=== PATIENT | female | born 1955 | race Two or more races ===

== ENCOUNTER 2020-02-01 16:36 | Inpatient (IN) | payer MEDICARE, MEDICAID ==
[~2020-02-01] VITALS: Ht 167.6 cm; Wt 72.6 kg
[2020-02-01 16:50] VITALS: BP 134/66
[2020-02-01] MEDS ORDERED: dexAMETHasone 10mg/ml Inj IV ONE (17:15)
--- NOTE | 2020-02-01 17:26 | Emergency Room Report ---
History of Present Illness General Chief Complaint: Upper Respiratory Illness Source: Patient Present Illness HPI Patient presents with 1 day of cough and dyspnea on exertion. She has also had fever. Diarrhea. She used her son's inhaler earlier. Use of the inhaler improved symptoms minimally. She has had some mildly productive phlegm. There is no hemoptysis. She denies chest pain, abdominal pain although her body feels weak and she has some aches. Patient has a history of diabetes, hypertension and asthma. Allergies: Coded Allergies: No Known Allergies (Unverified , 02/01/20) COVID-19 Screening Contact w/high risk pt: No Experienced COVID-19 symptoms?: No COVID-19 Testing performed LUMBER SORTER MACHINE: No Patient History Past Medical History: see triage record Social History: Denies: smoking, alcohol use, drug use Social History Narrative retired Reviewed Nursing Documentation: PMH: Agreed; PSxH: Agreed Nursing Documentation-PM Past Medical History: No History, Except For Hx Hypertension: Yes Hx Asthma: Yes Hx Diabetes: Yes Physical Exam Vital Signs Date Time Temp Pulse Resp B/P (MAP) Pulse Ox O2 Delivery O2 Flow Rate FiO2 02/01/20 16:43 99.9 90 20 134/66 (88) 94 Room Air Sp02 EP Interpretation: reviewed, abnormal - Interpreted as slightly low by me General Appearance: well appearing, no apparent distress, GCS 15 Head: normocephalic Eyes: bilateral eye normal inspection, bilateral eye PERRL, bilateral eye EOMI ENT: moist mucus membranes Neck: supple Respiratory: crackles - Minimal slight increased expiratory phase Cardiovascular #1: regular rate, rhythm, no edema Cardiovascular #2: 2+ radial (R) Gastrointestinal: normal inspection, normal bowel sounds, non tender, no mass, non-distended Genitourinary: no CVA tenderness Musculoskeletal: back normal, normal range of motion, no calf tenderness, gait/station normal Neurologic: alert, oriented x3, grossly normal Psychiatric: mood/affect normal Skin: no rash, warm/dry Medical Decision Making Diagnostic Impression: Primary Impression: Pneumonia due to COVID-19 virus Additional Impressions: Hypoxia Hyperglycemia Hyponatremia ER Course Patient presents with wheezes, mild hypoxia and fevers with diarrhea. Differential includes viral syndrome including COVID-19, asthma exacerbation, bronchitis, pneumonia amongst others. If this is Covid the patient may benefit from bamlamivimab as she is also diabetic and hypertensive. Covid testing will be obtained. In addition EKG, chest x-ray and labs. Patient treated with Decadron and may receive breathing treatments if she is Covid negative. EKG NSR, NSSSTTW changes. CXR bilateral infiltrates. Sodium 127. Glucose elevated. Elevated LDH and alk phos. D-dimer minimally elevated. COVID-19 positive. O2 sats drop with sleep. Exercised patient and O2 sat dropped to 88%. Needs admision. Blood cultures, Rocephin and azithromycin ordered. Oxygen orders also. Patient improved on oxygen. No respiratory distress. Patient admitted to the hospital. Laboratory Tests Test 02/01/20 17:20 02/01/20 22:18 White Blood Count 9.5 K/UL (4.8-10.8) Red Blood Count 3.42 M/UL (4.20-5.40) L Hemoglobin 10.1 G/DL (12.0-16.0) L Hematocrit 29.1 % (37.0-47.0) L Mean Corpuscular Volume 85 FL (80-99) Mean Corpuscular Hemoglobin 29.6 PG (27.0-31.0) Mean Corpuscular Hemoglobin Concent 34.8 G/DL (32.0-36.0) Red Cell Distribution Width 14.1 % (11.6-14.8) Platelet Count 207 K/UL (150-450) Mean Platelet Volume 9.7 FL (6.5-10.1) Neutrophils (%) (Auto) 83.6 % (45.0-75.0) H Lymphocytes (%) (Auto) 9.4 % (20.0-45.0) L Monocytes (%) (Auto) 6.7 % (1.0-10.0) Eosinophils (%) (Auto) 0.0 % (0.0-3.0) Basophils (%) (Auto) 0.2 % (0.0-2.0) Prothrombin Time 9.9 SEC (9.30-11.50) Prothrombin Time INR 0.9 (0.9-1.1) Activated Partial Thromboplast Time 32 SEC (23-33) D-Dimer 0.84 mg/L FEU (0.00-0.49) H Sodium Level 129 MMOL/L (136-145) L Potassium Level 4.5 MMOL/L (3.5-5.1) Chloride Level 97 MMOL/L (98-107) L Carbon Dioxide Level 23 MMOL/L (21-32) Anion Gap 9 mmol/L (5-15) Blood Urea Nitrogen 44 mg/dL (7-18) H Creatinine 2.0 MG/DL (0.55-1.30) H Estimated Glomerular Filtration Rate 25.0 mL/min (>60) Glucose Level 239 MG/DL (74-106) H Lactic Acid Level 1.20 mmol/L (0.4-2.0) Calcium Level 7.9 MG/DL (8.5-10.1) L Magnesium Level 2.2 MG/DL (1.8-2.4) Ferritin 228 NG/ML (8-388) Total Bilirubin 0.3 MG/DL (0.2-1.0) Aspartate Amino Transferase (AST) 29 U/L (15-37) Alanine Aminotransferase (ALT) 27 U/L (12-78) Alkaline Phosphatase 162 U/L (46-116) H Lactate Dehydrogenase 244 U/L (81-234) H Total Creatine Kinase 207 U/L (26-308) Troponin I 0.000 ng/mL (0.000-0.056) C-Reactive Protein, Quantitative 8.0 mg/dL (0.00-0.90) H Pro-B-Type Natriuretic Peptide 165 pg/mL (0-125) H Total Protein 7.5 G/DL (6.4-8.2) Albumin 2.8 G/DL (3.4-5.0) L Globulin 4.7 g/dL Albumin/Globulin Ratio 0.6 (1.0-2.7) L Lipase 409 U/L (73-393) H POC Whole Blood Glucose Pending Microbiology Date/Time Source Procedure Growth Status 02/01/20 17:20 Nasopharynx SARS-CoV-2 RdRp Gene Assay - Final Complete EKG Diagnostic Results Rate: normal Rhythm: NSR ST Segments: no acute changes - Nonspecific ST-T wave changes Rhythm Strip Diag. Results EP Interpretation: yes Rhythm: NSR, no PVC's, no ectopy Chest X-Ray Diagnostic Results Chest X-Ray Diagnostic Results : Chest X-Ray Ordered: Yes # of Views/Limited/Complete: 1 View Indication: Shortness of Breath EP Interpretation: Yes Interpretation: no effusion, no pneumothorax, other - bilateral infiltrates Impression: Other Electronically Signed by: Electronically signed by Poncho Paniagua MD Last Vital Signs Date Time Temp Pulse Resp B/P (MAP) Pulse Ox O2 Delivery O2 Flow Rate FiO2 02/01/20 16:43 99.9 90 20 134/66 (88) 94 Room Air Status: improved Disposition: ADMITTED INPATIENT Condition: Serious Poncho Paniagua MD Feb 01, 2020 17:26
--- NOTE | 2020-02-01 17:39 | Diagnostic Imaging Report ---
EXAM: XR Chest, 1 View CLINICAL HISTORY: COUGH TECHNIQUE: Frontal view of the chest. COMPARISON: No previous study. FINDINGS: Lungs: Patchy airspace disease is noted in the mid lower lung zones the periphery worrisome for Covid-90 pneumonia. Pleural space: Unremarkable. No pneumothorax. Heart: Cardiomegaly. Mediastinum: Unremarkable. Bones/joints: Osteopenia. Vasculature: Atherosclerotic disease of the aortic knob. IMPRESSION: 1. Compared of cardiomegaly. 2. Findings compatible with Covid-19 pneumonia. 3. Osteopenia.
[2020-02-01 17:55] LABS: ANION GAP 9 mmol/L (5-15); BASOPHILS % (AUTO) 0.2 % (0.0-2.0); BLOOD UREA NITROGEN 44 mg/dL (7-18); CALCIUM 7.9 MG/DL (8.5-10.1); CARBON DIOXIDE 23 MMOL/L (21-32); CHLORIDE 97 MMOL/L (98-107); HEMATOCRIT 29.1 % (37.0-47.0); HEMOGLOBIN 10.1 G/DL (12.0-16.0); LYMPHOCYTES % (AUTO) 9.4 % (20.0-45.0); MEAN CORPUSCULAR VOLUME 85 FL (80-99); MONOCYTES % (AUTO) 6.7 % (1.0-10.0); NEUTROPHILS % (AUTO) 83.6 % (45.0-75.0); PLATELET COUNT 207 K/UL (150-450); POTASSIUM 4.5 MMOL/L (3.5-5.1); RED BLOOD COUNT 3.42 M/UL (4.20-5.40); RED CELL DISTRIBUTION WIDTH 14.1 % (11.6-14.8); SODIUM 129 MMOL/L (136-145); WHITE BLOOD COUNT 9.5 K/UL (4.8-10.8)
[2020-02-01 18:01] LABS: INR 0.9 (0.9-1.1)
[2020-02-01 18:17] LABS: ALANINE AMINOTRANSFERASE 27 U/L (12-78); ALBUMIN 2.8 G/DL (3.4-5.0); ALBUMIN/GLOBULIN RATIO 0.6 (1.0-2.7); ALKALINE PHOSPHATASE 162 U/L (46-116); ASPARTATE AMINO TRANSFERASE 29 U/L (15-37); BILIRUBIN,TOTAL 0.3 MG/DL (0.2-1.0); CREATINE KINASE 207 U/L (26-308); FERRITIN 228 NG/ML (8-388); LACTATE DEHYDROGENASE 244 U/L (81-234)
[2020-02-01 18:19] VITALS: BP 136/75
[2020-02-01] MEDS ORDERED: Azithromycin 500 MG in NS 275 ML IV ONE (18:30)
[2020-02-01] MEDS ORDERED: cefTRIAXone 1 GM in NS 55 ML IVPB ONE (18:30)
[2020-02-01 20:09] VITALS: BP_SYST 118; BP_SYST 134; BP_DIAS 58; BP_DIAS 78
[2020-02-01] MEDS ORDERED: LANTUS SOL100 UNIT/1 SUBQ (20:43)
[2020-02-01 22:20] VITALS: BP 118/64
[2020-02-01] MEDS ORDERED: Acetaminophen 500mg (ES) tab ORAL PRN (22:30)
[2020-02-01] MEDS ORDERED: Varibar Thin Liquid powder 148gm MC PRN (22:45)
[2020-02-01] MEDS ORDERED: Varibar Honey 250ml MC PRN (22:45)
[2020-02-01] MEDS ORDERED: Varibar Nectar 240ml MC PRN (22:45)
[2020-02-01] MEDS ORDERED: Varibar Pudding 230ml MC PRN (22:45)
[2020-02-02] VITALS: BP 125/71
[2020-02-02 04:00] VITALS: BP 109/74
[2020-02-02 04:38] LABS: HEMATOCRIT 28.5 % (37.0-47.0); MEAN CORPUSCULAR VOLUME 83 FL (80-99); PLATELET COUNT 196 K/UL (150-450); RED BLOOD COUNT 3.43 M/UL (4.20-5.40); RED CELL DISTRIBUTION WIDTH 15.2 % (11.6-14.8); WHITE BLOOD COUNT 6.6 K/UL (4.8-10.8)
[2020-02-02 04:58] LABS: ALBUMIN 2.4 G/DL (3.4-5.0); ALBUMIN/GLOBULIN RATIO 0.5 (1.0-2.7); BILIRUBIN,TOTAL 0.3 MG/DL (0.2-1.0); CALCIUM 7.8 MG/DL (8.5-10.1); CREATININE 1.6 MG/DL (0.55-1.30); POTASSIUM 5.2 MMOL/L (3.5-5.1)
--- NOTE | 2020-02-02 06:31 | Consultation ---
DATE OF CONSULTATION: 02/02/2020 PULMONARY CONSULTATION CONSULTING PHYSICIAN: Clay Cain MD. REFERRING PHYSICIAN: Alison Coffey MD. REASON FOR CONSULTATION: Pneumonia. HISTORY OF PRESENT ILLNESS: This is a 64-year-old female who was brought to the hospital yesterday with complaints of cough and dyspnea. She also reported fever and diarrhea. She has been using inhaler at home as well with some symptoms. She reports cough with phlegm production. The patient is a known diabetic, hypertensive, and also has a history of asthma. The patient was seen and evaluated in the emergency room. She underwent a rapid gene assay testing for COVID which was positive. She also underwent imaging studies, which showed that she had bilateral patchy airspace disease particularly in the lower lung [place]. The patient was admitted to the hospital for management and care. MEDICATIONS: Her list of home medications/current medications include azithromycin, Rocephin and Decadron. PAST MEDICAL HISTORY: Diabetes mellitus, hypertension, asthma. ALLERGIES: None reported. SOCIAL HISTORY: Denies any alcohol and tobacco use. REVIEW OF SYSTEMS: Denies any headaches, hematemesis, melena, hematochezia, night sweats, or weight loss. PHYSICAL EXAMINATION: GENERAL: Reveals a 64-year-old female. VITAL SIGNS: Blood pressure is 118/60, heart rate 74, respiratory rate 18, O2 saturation 98% on 2 L of oxygen. HEENT: Unremarkable. LUNGS: Clear breath sounds bilaterally. ABDOMEN: Soft. EXTREMITIES: There is no edema. NEUROLOGIC: Nonfocal. LABORATORY DATA: Lab testing shows hemoglobin of 10, otherwise normal CBC. BMP notable for potassium 5.2, creatinine 1.6. Coags notable for D-dimer 0.8. X-ray chest discussed above. IMPRESSION: 1. COVID pneumonia. 2. Diabetes mellitus. 3. Hyperkalemia. 4. Hyponatremia. 5. Anemia. DISCUSSION: Admit to the hospital. We will initiate Decadron. We will initiate DVT prophylaxis with Lovenox. Diabetes monitoring. Blood pressure control. Defer Remdesivir use to ID. We will follow carefully. Currently saturating well on nasal oxygen. Clay Cain M.D. DR: Fermin JOB#: [id number] CC:
[2020-02-02 08:00] VITALS: BP 120/69
[2020-02-02] MEDS: Enoxaparin 40mg Inj SUBQ SCH (08:36)
[2020-02-02 12:00] VITALS: BP 125/77
--- NOTE | 2020-02-02 12:08 | Pulmonology Progress Note ---
Subjective ROS Limited/Unobtainable: No Interval Events: none major Constitutional: Denies: fever, chills, anorexia HEENT: Repors: no symptoms Respiratory: Reports: dry cough Cardiovascular: Reports: no symptoms Gastrointestinal/Abdominal: Reports: no symptoms Allergies: Coded Allergies: No Known Allergies (Unverified , 02/01/20) Objective Last 24 Hour Vital Signs Date Time Temp Pulse Resp B/P (MAP) Pulse Ox O2 Delivery O2 Flow Rate FiO2 02/02/20 09:00 Nasal Cannula 2.0 02/02/20 08:00 97.3 64 20 120/69 (86) 96 02/02/20 04:00 97.0 73 20 109/74 (86) 95 02/02/20 00:00 98.0 71 20 125/71 (89) 95 02/01/20 22:20 97.7 77 20 118/64 (82) 96 02/01/20 21:55 Nasal Cannula 2.0 02/01/20 21:00 98.6 72 16 134/58 98 Nasal Cannula 2.0 02/01/20 20:09 98.6 72 16 134/58 98 Nasal Cannula 2.0 02/01/20 18:19 98.9 78 16 136/75 98 Nasal Cannula 2.0 02/01/20 16:50 90 20 Room Air 02/01/20 16:50 99.9 90 20 134/66 94 Room Air 02/01/20 16:43 99.9 90 20 134/66 (88) 94 Room Air Intake and Output 02/01/20 02/02/20 18:59 06:59 Intake Total 1330 ml Balance 1330 ml Intake IV Total 1330 ml # Voids 1 Objective 02/02/2020 saturating well on 2 lpm NC General Appearance: WD/WN, no acute distress HEENT: normocephalic, atraumatic Respiratory: chest wall non-tender, lungs clear Cardiovascular: normal peripheral pulses, normal rate, regular rhythm, no gallop/murmur Abdomen: normal bowel sounds, soft, non tender Microbiology Date/Time Source Procedure Growth Status 02/01/20 17:20 Nasopharynx SARS-CoV-2 RdRp Gene Assay - Final Complete Laboratory Tests 02/01/20 17:20: White Blood Count 9.5, Red Blood Count 3.42L, Hemoglobin 10.1L, Hematocrit 29.1L , Mean Corpuscular Volume 85, Mean Corpuscular Hemoglobin 29.6, Mean Corpuscular Hemoglobin Concent 34.8, Red Cell Distribution Width 14.1, Platelet Count 207, Mean Platelet Volume 9.7, Neutrophils (%) (Auto) 83.6H, Lymphocytes (%) (Auto) 9.4L, Monocytes (%) (Auto) 6.7, Eosinophils (%) (Auto) 0.0, Basophils (%) (Auto) 0.2, Prothrombin Time 9.9, Prothromb Time International Ratio 0.9, Activated Partial Thromboplast Time 32, D-Dimer 0.84H, Sodium Level 129L, Potassium Level 4.5, Chloride Level 97L, Carbon Dioxide Level 23, Anion Gap 9, Blood Urea Nitrogen 44H, Creatinine 2.0H, Estimat Glomerular Filtration Rate 25.0, Glucose Level 239H, Lactic Acid Level 1.20, Calcium Level 7.9L, Magnesium Level 2.2, Ferritin 228, Total Bilirubin 0.3, Aspartate Amino Transf (AST/SGOT) 29, Alanine Aminotransferase (ALT/SGPT) 27, Alkaline Phosphatase 162H, Lactate Dehydrogenase 244H, Total Creatine Kinase 207, Troponin I 0.000, C-Reactive Protein, Quantitative 8.0H, Pro-B-Type Natriuretic Peptide 165H, Total Protein 7.5, Albumin 2.8L, Globulin 4.7, Albumin/Globulin Ratio 0.6L, Lipase 409H 02/01/20 22:18: POC Whole Blood Glucose [Pending] 02/02/20 03:45: White Blood Count 6.6, Red Blood Count 3.43L, Hemoglobin 10.0L, Hematocrit 28.5L , Mean Corpuscular Volume 83, Mean Corpuscular Hemoglobin 29.2, Mean Corpuscular Hemoglobin Concent 35.2, Red Cell Distribution Width 15.2H, Platelet Count 196, Mean Platelet Volume 9.3, Neutrophils (%) (Auto) , Lymphocytes (%) (Auto) , Monocytes (%) (Auto) , Eosinophils (%) (Auto) , Basophils (%) (Auto) , Sodium Level 131L, Potassium Level 5.2H, Chloride Level 102, Carbon Dioxide Level 21, Anion Gap 8, Blood Urea Nitrogen 44H, Creatinine 1.6H, Estimat Glomerular Filtration Rate 32.4, Glucose Level 236H, Calcium Level 7.8L, Total Bilirubin 0.3, Aspartate Amino Transf (AST/SGOT) 26, Alanine Aminotransferase (ALT/SGPT) 28, Alkaline Phosphatase 142H, Total Protein 7.0, Albumin 2.4L, Globulin 4.6, Albumin/Globulin Ratio 0.5L, Differential Total Cells Counted 100, Neutrophils % (Manual) 89H, Lymphocytes % (Manual) 7L, Monocytes % (Manual) 4, Eosinophils % (Manual) 0, Basophils % (Manual) 0, Band Neutrophils 0, Platelet Estimate Adequate, Platelet Morphology Normal, Anisocytosis 1+ Current Medications Medications (Trade) Dose Ordered Sig/Natalia Route PRN Reason Start Time Stop Time Status Last Admin Dose Admin Acetaminophen (Tylenol) 500 mg Q6HR PRN ORAL Temp >100.5 02/01/20 22:30 03/02/20 22:29 Barium Sulfate (Varibar Honey) 250 ml NOW PRN RAD 02/01/20 22:45 02/04/20 22:33 Barium Sulfate (Varibar [place]) 240 ml NOW PRN RAD 02/01/20 22:45 02/04/20 22:33 Barium Sulfate (Varibar Pudding) 230 ml NOW PRN RAD 02/01/20 22:45 02/04/20 22:33 Barium Sulfate (Varibar Thin Liquid powder) 148 gm NOW PRN RAD 02/01/20 22:45 02/04/20 22:33 Dexamethasone Sodium Phosphate (Decadron 4mg/ml vial) 6 mg DAILY IVP 02/02/20 09:00 05/02/20 08:59 02/02/20 08:35 Enoxaparin Sodium (Lovenox) 40 mg DAILY SUBQ 02/02/20 09:00 05/02/20 08:59 02/02/20 08:36 Sodium Chloride 1,000 ml @ 55 mls/hr [id number] IV 02/01/20 22:00 03/02/20 21:59 02/01/20 22:13 Assessment/Plan Assessment/Plan 1. COVID pneumonia. - Currently saturating well on nasal oxygen. - Decadron added - Defer Remdesivir use to ID. 2. Diabetes mellitus. - monitor BGs 3. Hyperkalemia. 4. Hyponatremia. 5. Anemia. DVT ppx - lovenox We will follow carefully. The care of this patient was discussed with my supervising physician Time spent for this encounter was approximately 31 minutes The patient was seen and examined at bedside and all new and available data was reviewed in the patients chart. I agree with the above findings, impression, and plan. (Patient was seen earlier today. Signature timestamp does not reflect patient encounter time) Wilder Lindsey MD Feb 02, 2020 12:08 Clay Cain MD Feb 02, 2020 18:16
[2020-02-02 16:00] VITALS: BP 126/63
--- NOTE | 2020-02-02 17:45 | Consultation ---
DATE OF CONSULTATION: 02/02/2020 INFECTIOUS DISEASE CONSULT PRIMARY ATTENDING PHYSICIAN: Alison Coffey M.D. REASON FOR CONSULTATION: COVID-19 disease. HISTORY OF PRESENT ILLNESS: This is a 64-year-old female admitted yesterday from home complaining of coughing, shortness of breath, fever, diarrhea for 1 day. She was diagnosed with COVID. PAST MEDICAL HISTORY: Significant for diabetes mellitus, hypertension, asthma. ALLERGIES: No known drug allergies MEDICATIONS: Enoxaparin, dexamethasone, Tylenol. Got a dose of ceftriaxone and azithromycin in the ER. SOCIAL HISTORY: . Denies alcohol, drug abuse, or smoking. REVIEW OF SYSTEMS: As history of present illness. Has a dry cough. No significant shortness of breath. PHYSICAL EXAMINATION: VITAL SIGNS: Temperature 97.6, maximum temperature was 99.9, pulse 70, blood pressure 125/77. GENERAL APPEARANCE: Seems well developed. HEAD AND NECK: [place] conjunctivae. HEART: Normal rate. LUNGS: Clear. BACK: Had some kyphosis. The patient currently is on room air oxygen. ABDOMEN: Soft, nontender. EXTREMITIES: No edema. NEUROLOGIC: Awake, alert, oriented x3. LABORATORY AND DIAGNOSTIC DATA: WBC 6.6, hemoglobin 10, hematocrit 28.5, platelets 196. Sodium 131, potassium 5.2, chloride 102, bicarb 20, BUN 44, creatinine 1.6, glucose is 236. Chest x-ray, cardiomegaly, osteopenia, findings compatible with COVID-19 pneumonia. COVID-19 disease was also positive. IMPRESSION: 1. COVID-19 pneumonia. The patient currently is on room air oxygen. O2 saturation is 93%. 2. Diabetes mellitus with hyperglycemia. 3. Hypertension. 4. Asthma. 5. Hyponatremia. 6. Lymphopenia. 7. Hyperkalemia. RECOMMENDATION: Continue supportive care. May use dexamethasone for asthma. We will follow up the clinical course. At the end of my exam, I thank Dr. Coffey for involving me in the care of this patient. Neri Meek M.D. DR: MLELY JOB#: [id number] CC:
[2020-02-02 20:00] VITALS: BP 119/50
--- NOTE | 2020-02-02 22:45 | History and Physical Report ---
DATE OF ADMISSION: 02/01/2020 HISTORY OF PRESENT ILLNESS: The patient is admitted for COVID-positive pneumonia. The patient basically came in with about 1 day of cough and shortness of breath. Also had fever and chills. Denies nausea, vomiting, or diarrhea. Denies abdominal pain. Denies orthopnea. The patient was admitted for electrolyte imbalance, COVID-positive pneumonia, acute renal failure, and pancreatitis. The patient does have mild abdominal pain. PAST MEDICAL HISTORY: Significant for GERD, hypertension, asthma, and diabetes. ALLERGIES: No known allergies. FAMILY HISTORY: Noncontributory. SOCIAL HISTORY: Denies history of smoking. Denies history alcohol or illicit drugs. MEDICATIONS: Lantus. REVIEW OF SYSTEMS: HEENT: Denies headaches. RESPIRATORY: Does complain of some shortness of breath. Denies cough. CARDIOVASCULAR: Denies chest pain. GASTROINTESTINAL: Denies nausea, vomiting, or diarrhea. EXTREMITIES: Denies pain. PHYSICAL EXAMINATION: VITAL SIGNS: Temperature is 97.3, pulse is 64, blood pressure 120/69. HEENT: PERRLA. NECK: Supple. CHEST: Clear to auscultation. CARDIOVASCULAR: Regular rate and rhythm. No murmurs or extra sounds. GASTROINTESTINAL: Soft, nontender, nondistended. No organomegaly. EXTREMITIES: No edema. Able to move her extremities. Reflexes in both sides. DIAGNOSTIC AND LABORATORY DATA: WBC of 9.4, hemoglobin 10.1, platelets 207,000. Sodium 131, potassium 4.2, BUN of 44, creatinine 1.6, glucose of 236. ASSESSMENT AND PLAN: COVID-positive pneumonia, acute renal failure, pancreatitis, electrolyte imbalance, hyponatremia, and elevated lipase. I have asked Dr. Hickey, Dr. Neri Meek, Dr. Clay Cain to see the patient for the above-mentioned abnormal symptoms, abnormal findings, and abnormal labs as well as for management of COVID pneumonia. Alison Coffey M.D. DR: CHERRY JOB#: [id number] CC:
[2020-02-03] VITALS: BP 115/61
[2020-02-03 04:00] VITALS: BP 138/61
[2020-02-03 08:00] VITALS: BP 146/70
[2020-02-03] MEDS: Enoxaparin 40mg Inj SUBQ SCH (08:54)
[2020-02-03 12:00] VITALS: BP 120/60
--- NOTE | 2020-02-03 12:39 | Pulmonology Progress Note ---
Subjective ROS Limited/Unobtainable: No Interval Events: none major Constitutional: Denies: fever, chills, anorexia HEENT: Repors: no symptoms Respiratory: Reports: dry cough Cardiovascular: Reports: no symptoms Gastrointestinal/Abdominal: Reports: no symptoms Allergies: Coded Allergies: No Known Allergies (Unverified , 02/01/20) Objective Last 24 Hour Vital Signs Date Time Temp Pulse Resp B/P (MAP) Pulse Ox O2 Delivery O2 Flow Rate FiO2 02/03/20 12:00 98.2 81 18 120/60 (80) 92 02/03/20 09:00 Nasal Cannula 2.0 02/03/20 08:00 97.7 76 18 146/70 (95) 93 02/03/20 04:00 97.9 79 17 138/61 (86) 92 02/03/20 00:00 97.5 72 16 115/61 (79) 95 02/02/20 21:00 Nasal Cannula 2.0 02/02/20 20:00 97.7 77 17 119/50 (73) 94 02/02/20 16:00 96.9 74 20 126/63 (84) 98 Intake and Output 02/02/20 02/03/20 19:00 07:00 Intake Total 480 ml Balance 480 ml Intake Oral 480 ml # Voids 3 3 Objective 02/03/2020 pt eating in bed; now on room air; saturating well 02/02/2020 saturating well on 2 lpm NC General Appearance: WD/WN, no acute distress HEENT: normocephalic, atraumatic Respiratory: chest wall non-tender, lungs clear Cardiovascular: normal peripheral pulses, normal rate, regular rhythm, no gallop/murmur Abdomen: normal bowel sounds, soft, non tender Microbiology Date/Time Source Procedure Growth Status 02/01/20 17:20 Nasopharynx SARS-CoV-2 RdRp Gene Assay - Final Complete Current Medications Medications (Trade) Dose Ordered Sig/Natalia Route PRN Reason Start Time Stop Time Status Last Admin Dose Admin Acetaminophen (Tylenol) 500 mg Q6HR PRN ORAL Temp >100.5 02/01/20 22:30 03/02/20 22:29 Barium Sulfate (Varibar Honey) 250 ml NOW PRN MC RAD 02/01/20 22:45 02/04/20 22:33 Barium Sulfate (Varibar [place]) 240 ml NOW PRN MC RAD 02/01/20 22:45 02/04/20 22:33 Barium Sulfate (Varibar Pudding) 230 ml NOW PRN RAD 02/01/20 22:45 02/04/20 22:33 Barium Sulfate (Varibar Thin Liquid powder) 148 gm NOW PRN RAD 02/01/20 22:45 02/04/20 22:33 Dexamethasone Sodium Phosphate (Decadron 4mg/ml vial) 6 mg DAILY IVP 02/02/20 09:00 02/10/20 09:01 02/03/20 08:53 Enoxaparin Sodium (Lovenox) 40 mg DAILY SUBQ 02/02/20 09:00 05/02/20 08:59 02/03/20 08:54 Sodium Chloride 1,000 ml @ 55 mls/hr [id number] IV 02/01/20 22:00 03/02/20 21:59 02/03/20 08:54 Assessment/Plan Assessment/Plan 1. COVID pneumonia. - Currently saturating well on RA - on Decadron - Defer Remdesivir use to ID. 2. Diabetes mellitus. - monitor BGs 3. Hyperkalemia. 4. Hyponatremia. 5. Anemia. DVT ppx - lovenox We will follow carefully. The care of this patient was discussed with my supervising physician Time spent for this encounter was approximately 31 minutes The patient was seen and examined at bedside and all new and available data was reviewed in the patients chart. I agree with the above findings, impression, and plan. (Patient was seen earlier today. Signature timestamp does not reflect patient encounter time) Wilder Lindsey MD Feb 03, 2020 12:39 Clay Cain MD Feb 03, 2020 17:00
[2020-02-03 16:00] VITALS: BP 163/77
[2020-02-03] MEDS ORDERED: METFORMIN HCL500 M1 ORAL (17:13)
[2020-02-03] MEDS ORDERED: LIPITOR80 MG ORAL (17:13)
[2020-02-03] MEDS ORDERED: METOPROLOL TART25 MG ORAL (17:13)
--- NOTE | 2020-02-03 17:36 | Consultation ---
Consult Note Consult Note I mask to evaluate the patient at the request of Dr. Alvarado for renal failure A second of patient's hospitalization Patient presents with 1 day of cough and dyspnea on exertion. She has also had fever. Diarrhea. She used her son's inhaler earlier. Use of the inhaler improved symptoms minimally. She has had some mildly productive phlegm. There is no hemoptysis. She denies chest pain, abdominal pain although her body feels weak and she has some aches. Patient has a history of diabetes, hypertension and asthma. Allergies: No Known Allergies (Unverified , 02/01/20) COVID-19 Screening Contact w/high risk pt: No Experienced COVID-19 symptoms?: No COVID-19 Testing performed RESTORATIVE AIDE: No Past Medical History: see triage record Social History: Denies: smoking, alcohol use, drug use Social History Narrative retired Reviewed Nursing Documentation: PMH: Agreed; PSxH: Agreed Past Medical History: No History, Except For Hx Hypertension: Yes Hx Asthma: Yes Hx Diabetes: Yes Vital Signs Date Time Temp Pulse Resp B/P (MAP) Pulse Ox O2 Delivery O2 Flow Rate FiO2 02/01/20 16:43 99.9 90 20 134/66 (88) 94 Room Air PHYSICAL EXAMINATION: VITAL SIGNS: Temperature 97.6, maximum temperature was 99.9, pulse 70, blood pressure 125/77. GENERAL APPEARANCE: Seems well developed. HEAD AND NECK: [place] conjunctivae. HEART: Normal rate. LUNGS: Clear. BACK: Had some kyphosis. The patient currently is on room air oxygen. ABDOMEN: Soft, nontender. EXTREMITIES: No edema. NEUROLOGIC: Awake, alert, oriented x3. LABORATORY AND DIAGNOSTIC DATA: WBC 6.6, hemoglobin 10, hematocrit 28.5, platelets 196. Sodium 131, potassium 5.2, chloride 102, bicarb 20, BUN 44, creatinine 1.6, glucose is 236. Chest x-ray, cardiomegaly, osteopenia, findings compatible with COVID-19 pneumonia. COVID-19 disease was also positive. . Assessment/Plan Impression: Acute on chronic renal failure Anemia Pneumonia due to COVID-19 virus Hypoxia Hyperglycemia History of hypertension Electrolyte imbalance Elevated lipase Plan: Change IV to normal saline Blood sugar and blood pressure control Resume Lopressor As needed hydralazine for high blood pressure Monitor renal parameters Avoid nephrotoxic's Anemia work-up Change diet to diabetic Fouladian,Tariq MD Feb 03, 2020 17:36
[2020-02-03] MEDS: HydrALAZINE 25mg tab ORAL PRN (17:53)
[2020-02-03] MEDS: Docusate 100mg cap ORAL SCH (17:54)
[2020-02-03 18:37] LABS: APPEARANCE,URINE CLEAR; BILIRUBIN, URINE NEGATIVE (NEGATIVE); COLOR,URINE PALE YELLOW; GLUCOSE, URINE (UA) 4+ (NEGATIVE); KETONES,URINE NEGATIVE (NEGATIVE); LEUKOCYTE ESTERASE ,URINE NEGATIVE (NEGATIVE); NITRITE,URINE NEGATIVE (NEGATIVE); PH,URINE 5 (4.5-8.0); PROTEIN,URINE 3+ (NEGATIVE); UROBILINOGEN,URINE NORMAL MG/DL (0.0-1.0)
[2020-02-03 20:00] VITALS: BP 128/69
[2020-02-03] MEDS: NovoLOG Insulin Flexpen SUBQ SCH (22:12)
--- NOTE | 2020-02-03 22:27 | General Progress Note ---
Subjective ROS Limited/Unobtainable: Yes Allergies: Coded Allergies: No Known Allergies (Unverified , 02/01/20) Objective Last 24 Hour Vital Signs Date Time Temp Pulse Resp B/P (MAP) Pulse Ox O2 Delivery O2 Flow Rate FiO2 02/03/20 22:13 89 162/91 02/03/20 17:53 163/77 02/03/20 16:00 97.7 82 18 163/77 (105) 94 02/03/20 12:00 98.2 81 18 120/60 (80) 92 02/03/20 09:00 Nasal Cannula 2.0 02/03/20 08:00 97.7 76 18 146/70 (95) 93 02/03/20 04:00 97.9 79 17 138/61 (86) 92 02/03/20 00:00 97.5 72 16 115/61 (79) 95 Intake and Output 02/02/20 02/03/20 18:59 06:59 Intake Total 480 ml Balance 480 ml Intake Oral 480 ml # Voids 3 3 Laboratory Tests 02/03/20 18:20: Urine Color Pale yellow, Urine Appearance Clear, Urine pH 5, Urine Specific [place] 1.005, Urine Protein 3+H, Urine Glucose (UA) 4+H, Urine Ketones Negative, Urine Blood 2+H, Urine Nitrite Negative, Urine Bilirubin Negative, Urine Urobilinogen Normal, Urine Leukocyte Esterase Negative, Urine RBC 2-4H, Urine WBC 0-2, Urine Squamous Epithelial Cells Few, Urine Bacteria Few, Urine Random Sodium 69 Height (Feet): 5 Height (Inches): 6.00 Weight (Pounds): 160 Assessment/Plan Problem List: (1) Hyperglycemia ICD Codes: R73.9 - Hyperglycemia, unspecified SNOMED: 84316795 (2) Hyponatremia ICD Codes: E87.1 - Hypo-osmolality and hyponatremia SNOMED: 62530731 (3) Hypoxia ICD Codes: R09.02 - Hypoxemia; J12.89 - Other viral pneumonia SNOMED: 484245813 (4) Pneumonia due to COVID-19 virus ICD Codes: U07.1 - COVID-19; J12.89 - Other viral pneumonia SNOMED: 844249899140061481 Status: progressing Assessment/Plan: prn supportive care covid positie pna resp insuff afebrile reviewed chart and labs Alison Coffey MD Feb 03, 2020 22:27
[2020-02-03] MEDS ORDERED: Levemir Flexpen SUBQ SCH (23:30)
[2020-02-04] VITALS: BP 143/68
[2020-02-04 04:00] VITALS: BP 159/79
[2020-02-04] MEDS: NovoLOG Insulin Flexpen SUBQ SCH ×7 (06:02→20:12)
[2020-02-04 07:09] LABS: BASOPHILS % (AUTO) 0.4 % (0.0-2.0); HEMATOCRIT 29.7 % (37.0-47.0); MEAN CORPUSCULAR VOLUME 86 FL (80-99); MONOCYTES % (AUTO) 8.9 % (1.0-10.0); NEUTROPHILS % (AUTO) 79.7 % (45.0-75.0); PLATELET COUNT 288 K/UL (150-450); RED BLOOD COUNT 3.44 M/UL (4.20-5.40); RED CELL DISTRIBUTION WIDTH 13.8 % (11.6-14.8); WHITE BLOOD COUNT 8.6 K/UL (4.8-10.8)
[2020-02-04 08:10] VITALS: BP 157/72
[2020-02-04] MEDS: Docusate 100mg cap ORAL SCH ×3 (08:11→17:07)
[2020-02-04] MEDS: Enoxaparin 40mg Inj SUBQ SCH (08:26)
[2020-02-04] MEDS: Levemir Flexpen SUBQ SCH ×2 (08:27→17:07)
[2020-02-04] MEDS: HydrALAZINE 25mg tab ORAL PRN (08:31)
[2020-02-04 08:40] LABS: ALANINE AMINOTRANSFERASE 31 U/L (12-78); ALBUMIN 2.6 G/DL (3.4-5.0); ALBUMIN/GLOBULIN RATIO 0.6 (1.0-2.7); ALKALINE PHOSPHATASE 142 U/L (46-116); ANION GAP 9 mmol/L (5-15); ASPARTATE AMINO TRANSFERASE 23 U/L (15-37); BILIRUBIN,TOTAL 0.3 MG/DL (0.2-1.0); BLOOD UREA NITROGEN 31 mg/dL (7-18); CARBON DIOXIDE 24 MMOL/L (21-32); CHLORIDE 104 MMOL/L (98-107); CHOLESTEROL 142 MG/DL (< 200); CREATINE KINASE 142 U/L (26-308); CREATININE 1.3 MG/DL (0.55-1.30); FERRITIN 295 NG/ML (8-388); GAMMA GLUTAMYL TRANSPEPTIDASE 18 U/L (5-85); HDL CHOLESTEROL 36 MG/DL (40-60); LACTATE DEHYDROGENASE 234 U/L (81-234); PHOSPHORUS 2.7 MG/DL (2.5-4.9); POTASSIUM 5.1 MMOL/L (3.5-5.1); SODIUM 137 MMOL/L (136-145); TRIGLYCERIDES 219 MG/DL (30-150)
[2020-02-04 08:41] LABS: % IRON SATURATION 20 % (15-50); IRON 49 ug/dL (50-175); TOTAL IRON BINDING CAPACITY 251 ug/dL (250-450)
--- NOTE | 2020-02-04 09:08 | Pulmonology Progress Note ---
Subjective ROS Limited/Unobtainable: Yes Interval Events: none major Constitutional: Denies: fever, chills, anorexia HEENT: Repors: no symptoms Respiratory: Reports: dry cough Cardiovascular: Reports: no symptoms Gastrointestinal/Abdominal: Reports: no symptoms Allergies: Coded Allergies: No Known Allergies (Unverified , 02/01/20) Objective Last 24 Hour Vital Signs Date Time Temp Pulse Resp B/P (MAP) Pulse Ox O2 Delivery O2 Flow Rate FiO2 02/04/20 08:31 161/89 02/04/20 08:11 68 157/72 02/04/20 08:10 97.9 68 18 157/72 (100) 95 02/04/20 04:00 97.7 72 18 159/79 (105) 94 02/04/20 00:00 97.9 82 18 143/68 (93) 94 02/03/20 22:13 89 162/91 02/03/20 21:00 Nasal Cannula 1.0 02/03/20 20:00 98.5 82 18 128/69 (88) 93 02/03/20 17:53 163/77 02/03/20 16:00 97.7 82 18 163/77 (105) 94 02/03/20 12:00 98.2 81 18 120/60 (80) 92 Intake and Output 02/03/20 02/04/20 19:02 07:02 Intake Total 1115 ml 480 ml Balance 1115 ml 480 ml Intake Oral 600 ml 480 ml IV Total 515 ml # Voids 3 2 Objective 02/04/2020 pt eating in bed; saturating well on RA 02/03/2020 pt eating in bed; now on room air; saturating well 02/02/2020 saturating well on 2 lpm NC General Appearance: WD/WN, no acute distress HEENT: normocephalic, atraumatic Respiratory: chest wall non-tender, lungs clear Cardiovascular: normal peripheral pulses, normal rate, regular rhythm, no gallop/murmur Abdomen: normal bowel sounds, soft, non tender Microbiology Date/Time Source Procedure Growth Status 02/01/20 17:20 Nasopharynx SARS-CoV-2 RdRp Gene Assay - Final Complete 02/01/20 17:20 Blood Blood Culture - Preliminary NO GROWTH AFTER 48 HOURS Resulted 02/01/20 17:05 Blood Blood Culture - Preliminary NO GROWTH AFTER 48 HOURS Resulted Laboratory Tests 02/03/20 18:20: Urine Color Pale yellow, Urine Appearance Clear, Urine pH 5, Urine Specific [place] 1.005, Urine Protein 3+H, Urine Glucose (UA) 4+H, Urine Ketones Negative, Urine Blood 2+H, Urine Nitrite Negative, Urine Bilirubin Negative, Urine Urobilinogen Normal, Urine Leukocyte Esterase Negative, Urine RBC 2-4H, Urine WBC 0-2, Urine Squamous Epithelial Cells Few, Urine Bacteria Few, Urine Random Sodium 69 02/04/20 05:30: White Blood Count 8.6, Red Blood Count 3.44L, Hemoglobin 10.0L, Hematocrit 29.7L , Mean Corpuscular Volume 86, Mean Corpuscular Hemoglobin 29.0, Mean Corpuscular Hemoglobin Concent 33.6, Red Cell Distribution Width 13.8, Platelet Count 288, Mean Platelet Volume 8.3, Neutrophils (%) (Auto) 79.7H, Lymphocytes (%) (Auto) 11.0L, Monocytes (%) (Auto) 8.9, Eosinophils (%) (Auto) 0.0, Basophils (%) (Auto) 0.4, Sodium Level 137, Potassium Level 5.1, Chloride Level 104, Carbon Dioxide Level 24, Anion Gap 9, Blood Urea Nitrogen 31H, Creatinine 1.3, Estimat Glomerular Filtration Rate 41.1, Glucose Level 320H, Hemoglobin A1c 10.1H, Uric Acid 6.6, Calcium Level 8.0L, Phosphorus Level 2.7, Magnesium Level 2.3, Iron Level 49L, Total Iron Binding Capacity 251, Percent Iron Saturation 20, Unsaturated Iron Binding 202, Ferritin 295, Total Bilirubin 0.3, Gamma Glutamyl Transpeptidase 18, Aspartate Amino Transf (AST/SGOT) 23, Alanine Aminotransferase (ALT/SGPT) 31, Alkaline Phosphatase 142H, Lactate Dehydrogenase 234, Total Creatine Kinase 142, C-Reactive Protein, Quantitative 1.1H, Pro-B-Type Natriuretic Peptide [Pending], Total Protein 7.1, Albumin 2.6L, Globulin 4.5, Albumin/Globulin Ratio 0.6L, Triglycerides Level 219H, Cholesterol Level 142, LDL Cholesterol 64, HDL Cholesterol 36L, Cholesterol/HDL Ratio 3.9, Lipase 450H, Vitamin B12 Level 1205H, Folate 12.4, Thyroid Stimulating Hormone (TSH) 1.024 Current Medications Medications (Trade) Dose Ordered Sig/Natalia Route PRN Reason Start Time Stop Time Status Last Admin Dose Admin Acetaminophen (Tylenol) 500 mg Q6HR PRN ORAL Temp >100.5 02/01/20 22:30 03/02/20 22:29 Barium Sulfate (Varibar Honey) 250 ml NOW PRN RAD 02/01/20 22:45 02/04/20 22:33 Barium Sulfate (Varibar [place]) 240 ml NOW PRN RAD 02/01/20 22:45 02/04/20 22:33 Barium Sulfate (Varibar Pudding) 230 ml NOW PRN RAD 02/01/20 22:45 02/04/20 22:33 Barium Sulfate (Varibar Thin Liquid powder) 148 gm NOW PRN RAD 02/01/20 22:45 02/04/20 22:33 Dexamethasone Sodium Phosphate (Decadron 4mg/ml vial) 6 mg DAILY IVP 02/02/20 09:00 02/10/20 09:01 02/04/20 08:12 Dextrose (Dextrose 50%) 25 ml Q30M PRN IV Hypoglycemia 02/04/20 07:00 05/04/20 06:59 Dextrose (Dextrose 50%) 50 ml Q30M PRN IV Hypoglycemia 02/04/20 07:00 05/04/20 06:59 Docusate Sodium (Colace) 100 mg THREE TIMES A DAY ORAL 02/03/20 18:00 03/04/20 17:59 02/04/20 08:11 Enoxaparin Sodium (Lovenox) 40 mg DAILY SUBQ 02/02/20 09:00 05/02/20 08:59 02/04/20 08:26 Hydralazine HCl (Apresoline) 25 mg Q4H PRN ORAL BP over 160 systolic 02/03/20 17:45 05/03/20 17:44 02/04/20 08:31 Insulin Aspart (NovoLOG) BEFORE MEALS AND HS SUBQ 02/03/20 21:00 05/03/20 20:59 02/04/20 06:02 Insulin Aspart (NovoLOG) 10 units NOVOTIAC SUBQ 02/04/20 07:00 05/04/20 06:59 02/04/20 07:09 Insulin Detemir (Levemir) 15 units BID SUBQ 02/04/20 09:00 05/04/20 08:59 12/14/20 08:27 Metoprolol Tartrate (Lopressor) 25 mg Q12HR ORAL 02/03/20 21:00 05/03/20 20:59 02/04/20 08:11 Pantoprazole (Protonix) 40 mg EVERY 12 HOURS ORAL 02/03/20 21:00 03/04/20 20:59 02/04/20 08:11 Sodium Chloride 1,000 ml @ 75 mls/hr [id number] IV 02/03/20 17:45 03/04/20 17:44 02/04/20 08:16 Assessment/Plan Assessment/Plan 1. COVID-19 pneumonia. - Currently saturating well on RA - on Decadron; switched to oral today - Defer Remdesivir use to ID. 2. Diabetes mellitus. - monitor BGs - A1c 10.1 - on glucose lowering agents 3. Hyperkalemia.; Resolved 4. Hyponatremia.; Resolved 5. Anemia. Hgb 10.0 6. Hypertension DVT ppx - on lovenox We will follow carefully. The care of this patient was discussed with my supervising physician Time spent for this encounter was approximately 31 minutes The patient was seen and examined at bedside and all new and available data was reviewed in the patients chart. I agree with the above findings, impression, and plan. (Patient was seen earlier today. Signature timestamp does not reflect patient encounter time) Wilder Lindsey MD Feb 04, 2020 09:08 Clay Cain MD Feb 04, 2020 17:07
--- NOTE | 2020-02-04 09:15 | Consultation ---
DATE OF CONSULTATION: 02/04/2020 ENDOCRINOLOGY CONSULTATION CONSULTING PHYSICIAN: Hemanth Pierce MD REFERRING PHYSICIAN: Alison Coffey MD REASON FOR CONSULTATION: Diabetes management. HISTORY OF PRESENT ILLNESS: The patient is a 64-year-old female with history of diabetes, on metformin and Lantus as an outpatient, who presented to the hospital with cough and dyspnea. She presented to ED and she was ruled in for COVID pneumonia, started on dexamethasone, which raised the glucose and Endocrinology was consulted. Her glucose is running over 400. There is no evidence of DKA. PAST MEDICAL HISTORY: 1. Diabetes. 2. Asthma. 3. Hypertension. ALLERGIES TO MEDICATIONS: None. FAMILY HISTORY: Noncontributory. SOCIAL HISTORY: No smoking, alcohol, or drug use. REVIEW OF SYSTEMS: As per HPI. PHYSICAL EXAMINATION: VITAL SIGNS: Blood pressure is 159/79, heart rate 73, temperature 97.7. The rest of the exam is deferred due to COVID isolation. LABORATORY VALUES: Sodium 131, potassium 5.2, chloride 102, bicarb 21, BUN 44, creatinine 1.6, glucose of 236. Urine, 3+ protein, 4+ glucose, 2+ blood. CBC shows WBC of 6.6, hemoglobin 10, hematocrit 28, and platelet of 196,000. DIAGNOSES: 1. COVID pneumonia. 2. Diabetes, exacerbated by steroids. PLAN: 1. Start Levemir 15 units b.i.d. 2. Start NovoLog 10 units before each meal. 3. Start NovoLog sliding scale before meals and at bedtime. 4. Hypoglycemia protocol is in order. 5. Further adjustment according to blood glucose values. We will follow her carefully during hospital stay. 6. Hemoglobin A1c is pending. Thank you, Dr. Coffey, for the courtesy of this consultation. Hemanth Pierce M.D. DR: DAYANARA/YASH JOB#: [id number] CC: ANUJA
--- NOTE | 2020-02-04 11:23 | Infectious Diseases Prog Note ---
Assessment/Plan Assessment/Plan IMPRESSION: 1. COVID-19 pneumonia. 2. Diabetes mellitus with hyperglycemia. 3. Hypertension. 4. Asthma. 5. Hyponatremia. 6. Lymphopenia. 7. Hyperkalemia. RECOMMENDATION: Continue supportive care. Continue dexamethasone Subjective ROS Limited/Unobtainable: No Constitutional: Reports: no symptoms Respiratory: Reports: no symptoms Cardiovascular: Reports: no symptoms Gastrointestinal/Abdominal: Reports: no symptoms Genitourinary: Reports: no symptoms Allergies: Coded Allergies: No Known Allergies (Unverified , 02/01/20) Objective Last 24 Hour Vital Signs Date Time Temp Pulse Resp B/P (MAP) Pulse Ox O2 Delivery O2 Flow Rate FiO2 02/04/20 08:31 161/89 02/04/20 08:25 Nasal Cannula 1.0 02/04/20 08:11 68 157/72 02/04/20 08:10 97.9 68 18 157/72 (100) 95 02/04/20 04:00 97.7 72 18 159/79 (105) 94 02/04/20 00:00 97.9 82 18 143/68 (93) 94 02/03/20 22:13 89 162/91 02/03/20 21:00 Nasal Cannula 1.0 02/03/20 20:00 98.5 82 18 128/69 (88) 93 02/03/20 17:53 163/77 02/03/20 16:00 97.7 82 18 163/77 (105) 94 02/03/20 12:00 98.2 81 18 120/60 (80) 92 Height (Feet): 5 Height (Inches): 6.00 Weight (Pounds): 160 General Appearance: no acute distress HEENT: mucous membranes moist Respiratory/Chest: lungs clear, other - oxygen by nasal cannula Abdomen: soft, non tender Extremities: no edema Neurologic/Psychiatric: alert, oriented x 3, responsive Microbiology Date/Time Source Procedure Growth Status 02/01/20 17:20 Nasopharynx SARS-CoV-2 RdRp Gene Assay - Final Complete 02/01/20 17:20 Blood Blood Culture - Preliminary NO GROWTH AFTER 48 HOURS Resulted 02/01/20 17:05 Blood Blood Culture - Preliminary NO GROWTH AFTER 48 HOURS Resulted Laboratory Tests Test 02/03/20 18:20 02/04/20 05:30 Urine Color Pale yellow Urine Appearance Clear Urine pH 5 (4.5-8.0) Urine Specific [place] 1.005 (1.005-1.035) Urine Protein 3+ (NEGATIVE) H Urine Glucose (UA) 4+ (NEGATIVE) H Urine Ketones Negative (NEGATIVE) Urine Blood 2+ (NEGATIVE) H Urine Nitrite Negative (NEGATIVE) Urine Bilirubin Negative (NEGATIVE) Urine Urobilinogen Normal MG/DL (0.0-1.0) Urine Leukocyte Esterase Negative (NEGATIVE) Urine RBC 2-4 /HPF (0 - 2) H Urine WBC 0-2 /HPF (0 - 2) Urine Squamous Epithelial Cells Few /LPF (NONE/OCC) Urine Bacteria Few /HPF (NONE) Urine Random Sodium 69 mmol/L (20-110) White Blood Count 8.6 K/UL (4.8-10.8) Red Blood Count 3.44 M/UL (4.20-5.40) L Hemoglobin 10.0 G/DL (12.0-16.0) L Hematocrit 29.7 % (37.0-47.0) L Mean Corpuscular Volume 86 FL (80-99) Mean Corpuscular Hemoglobin 29.0 PG (27.0-31.0) Mean Corpuscular Hemoglobin Concent 33.6 G/DL (32.0-36.0) Red Cell Distribution Width 13.8 % (11.6-14.8) Platelet Count 288 K/UL (150-450) Mean Platelet Volume 8.3 FL (6.5-10.1) Neutrophils (%) (Auto) 79.7 % (45.0-75.0) H Lymphocytes (%) (Auto) 11.0 % (20.0-45.0) L Monocytes (%) (Auto) 8.9 % (1.0-10.0) Eosinophils (%) (Auto) 0.0 % (0.0-3.0) Basophils (%) (Auto) 0.4 % (0.0-2.0) Sodium Level 137 MMOL/L (136-145) Potassium Level 5.1 MMOL/L (3.5-5.1) Chloride Level 104 MMOL/L (98-107) Carbon Dioxide Level 24 MMOL/L (21-32) Anion Gap 9 mmol/L (5-15) Blood Urea Nitrogen 31 mg/dL (7-18) H Creatinine 1.3 MG/DL (0.55-1.30) Estimat Glomerular Filtration Rate 41.1 mL/min (>60) Glucose Level 320 MG/DL (74-106) H Hemoglobin A1c 10.1 % (4.3-6.0) H Uric Acid 6.6 MG/DL (2.6-7.2) Calcium Level 8.0 MG/DL (8.5-10.1) L Phosphorus Level 2.7 MG/DL (2.5-4.9) Magnesium Level 2.3 MG/DL (1.8-2.4) Iron Level 49 ug/dL (50-175) L Total Iron Binding Capacity 251 ug/dL (250-450) Percent Iron Saturation 20 % (15-50) Unsaturated Iron Binding 202 ug/dL (112-346) Ferritin 295 NG/ML (8-388) Total Bilirubin 0.3 MG/DL (0.2-1.0) Gamma Glutamyl Transpeptidase 18 U/L (5-85) Aspartate Amino Transf (AST/SGOT) 23 U/L (15-37) Alanine Aminotransferase (ALT/SGPT) 31 U/L (12-78) Alkaline Phosphatase 142 U/L (46-116) H Lactate Dehydrogenase 234 U/L (81-234) Total Creatine Kinase 142 U/L (26-308) C-Reactive Protein, Quantitative 1.1 mg/dL (0.00-0.90) H Pro-B-Type Natriuretic Peptide Pending Total Protein 7.1 G/DL (6.4-8.2) Albumin 2.6 G/DL (3.4-5.0) L Globulin 4.5 g/dL Albumin/Globulin Ratio 0.6 (1.0-2.7) L Triglycerides Level 219 MG/DL (30-150) H Cholesterol Level 142 MG/DL (< 200) LDL Cholesterol 64 mg/dL (<100) HDL Cholesterol 36 MG/DL (40-60) L Cholesterol/HDL Ratio 3.9 (3.3-4.4) Lipase 450 U/L (73-393) H Vitamin B12 Level 1205 PG/ML (193-986) H Folate 12.4 NG/ML (8.6-58.9) Thyroid Stimulating Hormone (TSH) 1.024 uiU/mL (0.358-3.740) Current Medications Medications (Trade) Dose Ordered Sig/Natalia Route PRN Reason Start Time Stop Time Status Last Admin Dose Admin Acetaminophen (Tylenol) 500 mg Q6HR PRN ORAL Temp >100.5 02/01/20 22:30 03/02/20 22:29 Barium Sulfate (Varibar [place]) 250 ml NOW PRN RAD 02/01/20 22:45 02/04/20 22:33 Barium Sulfate (Varibar [place]) 240 ml NOW PRN RAD 02/01/20 22:45 02/04/20 22:33 Barium Sulfate (Varibar Pudding) 230 ml NOW PRN RAD 02/01/20 22:45 02/04/20 22:33 Barium Sulfate (Varibar Thin Liquid powder) 148 gm NOW PRN RAD 02/01/20 22:45 02/04/20 22:33 Dexamethasone (Decadron) 6 mg DAILY ORAL 02/05/20 09:00 02/11/20 09:01 Dextrose (Dextrose 50%) 25 ml Q30M PRN IV Hypoglycemia 02/04/20 07:00 05/04/20 06:59 Dextrose (Dextrose 50%) 50 ml Q30M PRN IV Hypoglycemia 02/04/20 07:00 05/04/20 06:59 Docusate Sodium (Colace) 100 mg THREE TIMES A DAY ORAL 02/03/20 18:00 03/04/20 17:59 02/04/20 08:11 Enoxaparin Sodium (Lovenox) 40 mg DAILY SUBQ 02/02/20 09:00 05/02/20 08:59 02/04/20 08:26 Hydralazine HCl (Apresoline) 25 mg Q4H PRN ORAL BP over 160 systolic 02/03/20 17:45 05/03/20 17:44 02/04/20 08:31 Insulin Aspart (NovoLOG) BEFORE MEALS AND HS SUBQ 02/03/20 21:00 05/03/20 20:59 02/04/20 06:02 Insulin Aspart (NovoLOG) 10 units NOVOTIAC SUBQ 02/04/20 07:00 05/04/20 06:59 02/04/20 07:09 Insulin Detemir (Levemir) 15 units BID SUBQ 02/04/20 09:00 05/04/20 08:59 02/04/20 08:27 Metoprolol Tartrate (Lopressor) 25 mg Q12HR ORAL 02/03/20 21:00 05/03/20 20:59 02/04/20 08:11 Pantoprazole (Protonix) 40 mg EVERY 12 HOURS ORAL 02/03/20 21:00 03/04/20 20:59 02/04/20 08:11 Sodium Chloride 1,000 ml @ 75 mls/hr [id number] IV 02/03/20 17:45 03/04/20 17:44 02/04/20 08:16 Neri Meek MD Feb 04, 2020 11:23
[2020-02-04 11:29] VITALS: BP 149/73
[2020-02-04 15:46] VITALS: BP 158/78
--- NOTE | 2020-02-04 16:38 | Nephrology Progress Note ---
Assessment/Plan Problem List: (1) Renal failure (ARF), acute on chronic (2) Dehydration (3) Electrolyte imbalance (4) Hyperglycemia (5) Pneumonia due to COVID-19 virus (6) Hypoxia (7) Anemia Assessment Acute on chronic renal failure Anemia Pneumonia due to COVID-19 virus Hypoxia Hyperglycemia History of hypertension Electrolyte imbalance Elevated lipase Plan February 03: Labs reviewed. Electrolytes improved. Serum creatinine improved. Continue per consultants. Norvasc added to blood pressure medication with proper parameters Change IV to normal saline Blood sugar and blood pressure control Resume Lopressor As needed hydralazine for high blood pressure Monitor renal parameters Avoid nephrotoxic's Anemia work-up Change diet to diabetic Subjective ROS Limited/Unobtainable: No Constitutional: Reports: malaise Objective Objective Last 24 Hour Vital Signs Date Time Temp Pulse Resp B/P (MAP) Pulse Ox O2 Delivery O2 Flow Rate FiO2 02/04/20 15:46 97.9 75 18 158/78 (104) 94 02/04/20 11:29 98.2 93 18 149/73 (98) 98 02/04/20 08:31 161/89 02/04/20 08:25 Nasal Cannula 1.0 02/04/20 08:11 68 157/72 02/04/20 08:10 97.9 68 18 157/72 (100) 95 02/04/20 04:00 97.7 72 18 159/79 (105) 94 02/04/20 00:00 97.9 82 18 143/68 (93) 94 02/03/20 22:13 89 162/91 02/03/20 21:00 Nasal Cannula 1.0 02/03/20 20:00 98.5 82 18 128/69 (88) 93 02/03/20 17:53 163/77 Intake and Output 02/03/20 02/04/20 19:00 07:00 Intake Total 1115 ml 555 ml Balance 1115 ml 555 ml Intake Oral 600 ml 480 ml IV Total 515 ml 75 ml # Voids 3 2 Current Medications Medications (Trade) Dose Ordered Sig/Natalia Route PRN Reason Start Time Stop Time Status Last Admin Dose Admin Acetaminophen (Tylenol) 500 mg Q6HR PRN ORAL Temp >100.5 02/01/20 22:30 03/02/20 22:29 Barium Sulfate (Varibar Honey) 250 ml NOW PRN MC RAD 02/01/20 22:45 02/04/20 22:33 Barium Sulfate (Varibar [place]) 240 ml NOW PRN RAD 02/01/20 22:45 02/04/20 22:33 Barium Sulfate (Varibar Pudding) 230 ml NOW PRN RAD 02/01/20 22:45 02/04/20 22:33 Barium Sulfate (Varibar Thin Liquid powder) 148 gm NOW PRN RAD 02/01/20 22:45 02/04/20 22:33 Dexamethasone (Decadron) 6 mg DAILY ORAL 02/05/20 09:00 02/11/20 09:01 Dextrose (Dextrose 50%) 25 ml Q30M PRN IV Hypoglycemia 02/04/20 07:00 05/04/20 06:59 Dextrose (Dextrose 50%) 50 ml Q30M PRN IV Hypoglycemia 02/04/20 07:00 05/04/20 06:59 Docusate Sodium (Colace) 100 mg THREE TIMES A DAY ORAL 02/03/20 18:00 03/04/20 17:59 02/04/20 12:00 Enoxaparin Sodium (Lovenox) 40 mg DAILY SUBQ 02/02/20 09:00 05/02/20 08:59 02/04/20 08:26 Hydralazine HCl (Apresoline) 25 mg Q4H PRN ORAL BP over 160 systolic 02/03/20 17:45 05/03/20 17:44 02/04/20 08:31 Insulin Aspart (NovoLOG) BEFORE MEALS AND HS SUBQ 02/03/20 21:00 05/03/20 20:59 02/04/20 11:33 Insulin Aspart (NovoLOG) 10 units NOVOTIAC SUBQ 02/04/20 07:00 05/04/20 06:59 02/04/20 11:34 Insulin Detemir (Levemir) 15 units BID SUBQ 02/04/20 09:00 05/04/20 08:59 02/04/20 08:27 Metoprolol Tartrate (Lopressor) 25 mg Q12HR ORAL 02/03/20 21:00 05/03/20 20:59 02/04/20 08:11 Pantoprazole (Protonix) 40 mg EVERY 12 HOURS ORAL 02/03/20 21:00 03/04/20 20:59 02/04/20 08:11 Sodium Chloride 1,000 ml @ 75 mls/hr [id number] IV 02/03/20 17:45 03/04/20 17:44 02/04/20 08:16 Laboratory Tests 02/03/20 18:20: Urine Color Pale yellow, Urine Appearance Clear, Urine pH 5, Urine Specific [place] 1.005, Urine Protein 3+H, Urine Glucose (UA) 4+H, Urine Ketones Negative, Urine Blood 2+H, Urine Nitrite Negative, Urine Bilirubin Negative, Urine Urobilinogen Normal, Urine Leukocyte Esterase Negative, Urine RBC 2-4H, Urine WBC 0-2, Urine Squamous Epithelial Cells Few, Urine Bacteria Few, Urine Random Sodium 69 02/04/20 05:30: White Blood Count 8.6, Red Blood Count 3.44L, Hemoglobin 10.0L, Hematocrit 29.7L , Mean Corpuscular Volume 86, Mean Corpuscular Hemoglobin 29.0, Mean Corpuscular Hemoglobin Concent 33.6, Red Cell Distribution Width 13.8, Platelet Count 288, Mean Platelet Volume 8.3, Neutrophils (%) (Auto) 79.7H, Lymphocytes (%) (Auto) 11.0L, Monocytes (%) (Auto) 8.9, Eosinophils (%) (Auto) 0.0, Basophils (%) (Auto) 0.4, Sodium Level 137, Potassium Level 5.1, Chloride Level 104, Carbon Dioxide Level 24, Anion Gap 9, Blood Urea Nitrogen 31H, Creatinine 1.3, Estimat Glomerular Filtration Rate 41.1, Glucose Level 320H, Hemoglobin A1c 10.1H, Uric Acid 6.6, Calcium Level 8.0L, Phosphorus Level 2.7, Magnesium Level 2.3, Iron Level 49L, Total Iron Binding Capacity 251, Percent Iron Saturation 20, Unsat urated Iron Binding 202, Ferritin 295, Total Bilirubin 0.3, Gamma Glutamyl Transpeptidase 18, Aspartate Amino Transf (AST/SGOT) 23, Alanine Aminotransferase (ALT/SGPT) 31, Alkaline Phosphatase 142H, Lactate Dehydrogenase 234, Total Creatine Kinase 142, C-Reactive Protein, Quantitative 1.1H, Pro-B-Type Natriuretic Peptide [Pending], Total Protein 7.1, Albumin 2.6L, Globulin 4.5, Albumin/Globulin Ratio 0.6L, Triglycerides Level 219H, Cholesterol Level 142, LDL Cholesterol 64, HDL Cholesterol 36L, Cholesterol/HDL Ratio 3.9, Lipase 450H, Vitamin B12 Level 1205H, Folate 12.4, Thyroid Stimulating Hormone (TSH) 1.024 Height (Feet): 5 Height (Inches): 6.00 Weight (Pounds): 160 General Appearance: no apparent distress Cardiovascular: normal rate Respiratory/Chest: decreased breath sounds Abdomen: distended Tariq Hickey MD Feb 04, 2020 16:38
[2020-02-04 20:00] VITALS: BP 145/66
--- NOTE | 2020-02-04 21:03 | General Progress Note ---
Subjective ROS Limited/Unobtainable: Yes Allergies: Coded Allergies: No Known Allergies (Unverified , 02/01/20) Objective Last 24 Hour Vital Signs Date Time Temp Pulse Resp B/P (MAP) Pulse Ox O2 Delivery O2 Flow Rate FiO2 02/04/20 20:10 75 158/78 02/04/20 17:19 75 158/78 02/04/20 15:46 97.9 75 18 158/78 (104) 94 02/04/20 11:29 98.2 93 18 149/73 (98) 98 02/04/20 08:31 161/89 02/04/20 08:25 Nasal Cannula 1.0 02/04/20 08:11 68 157/72 02/04/20 08:10 97.9 68 18 157/72 (100) 95 02/04/20 04:00 97.7 72 18 159/79 (105) 94 02/04/20 00:00 97.9 82 18 143/68 (93) 94 02/03/20 22:13 89 162/91 Intake and Output 02/03/20 02/04/20 18:59 06:59 Intake Total 1115 ml 480 ml Balance 1115 ml 480 ml Intake Oral 600 ml 480 ml IV Total 515 ml # Voids 3 2 Laboratory Tests 02/03/20 21:34: POC Whole Blood Glucose [Pending] 02/03/20 23:13: POC Whole Blood Glucose [Pending] 02/04/20 05:30: White Blood Count 8.6, Red Blood Count 3.44L, Hemoglobin 10.0L, Hematocrit 29.7L , Mean Corpuscular Volume 86, Mean Corpuscular Hemoglobin 29.0, Mean Corpuscular Hemoglobin Concent 33.6, Red Cell Distribution Width 13.8, Platelet Count 288, Mean Platelet Volume 8.3, Neutrophils (%) (Auto) 79.7H, Lymphocytes (%) (Auto) 11.0L, Monocytes (%) (Auto) 8.9, Eosinophils (%) (Auto) 0.0, Basophils (%) (Auto) 0.4, Sodium Level 137, Potassium Level 5.1, Chloride Level 104, Carbon Dioxide Level 24, Anion Gap 9, Blood Urea Nitrogen 31H, Creatinine 1.3, Estimat Glomerular Filtration Rate 41.1, Glucose Level 320H, Hemoglobin A1c 10.1H, Uric Acid 6.6, Calcium Level 8.0L, Phosphorus Level 2.7, Magnesium Level 2.3, Iron Level 49L, Total Iron Binding Capacity 251, Percent Iron Saturation 20, Unsa turated Iron Binding 202, Ferritin 295, Total Bilirubin 0.3, Gamma Glutamyl Transpeptidase 18, Aspartate Amino Transf (AST/SGOT) 23, Alanine Aminotransferase (ALT/SGPT) 31, Alkaline Phosphatase 142H, Lactate Dehydrogenase 234, Total Creatine Kinase 142, C-Reactive Protein, Quantitative 1.1H, Pro-B-Type Natriuretic Peptide [Pending], Total Protein 7.1, Albumin 2.6L, Globulin 4.5, Albumin/Globulin Ratio 0.6L, Triglycerides Level 219H, Cholesterol Level 142, LDL Cholesterol 64, HDL Cholesterol 36L, Cholesterol/HDL Ratio 3.9, Lipase 450H, Vitamin B12 Level 1205H, Folate 12.4, Thyroid Stimulating Hormone (TSH) 1.024 02/04/20 11:17: POC Whole Blood Glucose 172H 02/04/20 16:06: POC Whole Blood Glucose 331H Height (Feet): 5 Height (Inches): 6.00 Weight (Pounds): 160 Assessment/Plan Problem List: (1) Hyperglycemia ICD Codes: R73.9 - Hyperglycemia, unspecified SNOMED: 74492867 (2) Hyponatremia ICD Codes: E87.1 - Hypo-osmolality and hyponatremia SNOMED: 00375020 (3) Hypoxia ICD Codes: R09.02 - Hypoxemia; J12.89 - Other viral pneumonia SNOMED: 595923625 (4) Pneumonia due to COVID-19 virus ICD Codes: U07.1 - COVID-19; J12.89 - Other viral pneumonia SNOMED: 840847809979837445 Status: progressing Assessment/Plan: no change lytes improving niddm check sugar covid positie pna resp insuff afebrile reviewed chart and labs Alison Coffey MD Feb 04, 2020 21:03
[2020-02-05 04:00] VITALS: BP 147/67
[2020-02-05] MEDS: NovoLOG Insulin Flexpen SUBQ SCH ×7 (06:04→20:42)
--- NOTE | 2020-02-05 06:51 | General Progress Note ---
Subjective ROS Limited/Unobtainable: Yes Allergies: Coded Allergies: No Known Allergies (Unverified , 02/01/20) Subjective events noted glucose values on higher side Item Value Date Time Bedside Blood Glucose 299 mg/dl H 02/05/20 0605 Bedside Blood Glucose 443 mg/dl H 02/04/202011 Bedside Blood Glucose 331 mg/dl H 02/04/20 1707 Bedside Blood Glucose 172 mg/dl H 02/04/20 1134 Bedside Blood Glucose 305 mg/dl H 02/04/20 0827 Bedside Blood Glucose 305 mg/dl H 02/04/20 0602 Bedside Blood Glucose 480 mg/dl H 02/04/20 0010 Objective Last 24 Hour Vital Signs Date Time Temp Pulse Resp B/P (MAP) Pulse Ox O2 Delivery O2 Flow Rate FiO2 02/05/20 04:00 98.7 81 18 147/67 (93) 99 02/04/20 21:43 Nasal Cannula 2.0 02/04/20 20:10 75 158/78 02/04/20 20:00 98.4 78 18 145/66 (92) 99 02/04/20 17:19 75 158/78 02/04/20 15:46 97.9 75 18 158/78 (104) 94 02/04/20 11:29 98.2 93 18 149/73 (98) 98 02/04/20 08:31 161/89 02/04/20 08:25 Nasal Cannula 1.0 02/04/20 08:11 68 157/72 02/04/20 08:10 97.9 68 18 157/72 (100) 95 Intake and Output 02/04/20 02/05/20 19:00 07:00 Intake Total 1225 ml Balance 1225 ml Intake Oral 700 ml IV Total 525 ml # Voids 2 Laboratory Tests 02/04/20 11:17: POC Whole Blood Glucose 172H 02/04/20 16:06: POC Whole Blood Glucose 331H Height (Feet): 5 Height (Inches): 6.00 Weight (Pounds): 160 Objective Current Medications Medications (Trade) Dose Ordered Sig/Natalia Route PRN Reason Start Time Stop Time Status Last Admin Dose Admin Acetaminophen (Tylenol) 500 mg Q6HR PRN ORAL Temp >100.5 02/01/20 22:30 03/02/20 22:29 Amlodipine Besylate (Norvasc) 5 mg DAILY ORAL 02/05/20 09:00 03/06/20 08:59 Dexamethasone (Decadron) 6 mg DAILY ORAL 02/05/20 09:00 02/11/20 09:01 Dextrose (Dextrose 50%) 25 ml Q30M PRN IV Hypoglycemia 02/04/20 07:00 05/04/20 06:59 Dextrose (Dextrose 50%) 50 ml Q30M PRN IV Hypoglycemia 02/04/20 07:00 05/04/20 06:59 Docusate Sodium (Colace) 100 mg THREE TIMES A DAY ORAL 02/03/20 18:00 03/04/20 17:59 02/04/20 17:07 Enoxaparin Sodium (Lovenox) 40 mg DAILY SUBQ 02/02/20 09:00 05/02/20 08:59 02/04/20 08:26 Hydralazine HCl (Apresoline) 25 mg Q4H PRN ORAL BP over 160 systolic 02/03/20 17:45 05/03/20 17:44 02/04/20 08:31 Insulin Aspart (NovoLOG) BEFORE MEALS AND HS SUBQ 02/03/20 21:00 05/03/20 20:59 02/05/20 06:04 Insulin Aspart (NovoLOG) 10 units NOVOTIAC SUBQ 02/04/20 07:00 05/04/20 06:59 02/05/20 06:05 Insulin Detemir (Levemir) 15 units BID SUBQ 02/04/20 09:00 05/04/20 08:59 02/04/20 17:07 Metoprolol Tartrate (Lopressor) 25 mg Q12HR ORAL 02/03/20 21:00 05/03/20 20:59 02/04/20 20:10 Pantoprazole (Protonix) 40 mg EVERY 12 HOURS ORAL 02/03/20 21:00 03/04/20 20:59 02/04/20 20:10 Sodium Chloride 1,000 ml @ 50 mls/hr Q20H IV 02/03/20 17:45 03/04/20 17:44 02/04/20 08:16 Assessment/Plan Problem List: (1) Pneumonia due to COVID-19 virus ICD Codes: U07.1 - COVID-19; J12.89 - Other viral pneumonia SNOMED: 472581837882281919 (2) Hyponatremia ICD Codes: E87.1 - Hypo-osmolality and hyponatremia SNOMED: 06133732 (3) Hyperglycemia ICD Codes: R73.9 - Hyperglycemia, unspecified SNOMED: 01685871 Status: progressing Assessment/Plan: increase Levemir to 20 units bid increase Novolog to 15 units ac tid continue Novolog sliding scale ac hs Hemanth Pierce MD Feb 05, 2020 06:51
[2020-02-05 07:51] VITALS: BP 142/78
[2020-02-05] MEDS: Enoxaparin 40mg Inj SUBQ SCH (08:03)
[2020-02-05] MEDS: Levemir Flexpen SUBQ SCH ×2 (08:04→18:09)
[2020-02-05] MEDS: Docusate 100mg cap ORAL SCH ×3 (08:05→18:08)
--- NOTE | 2020-02-05 08:51 | Pulmonology Progress Note ---
Subjective ROS Limited/Unobtainable: Yes Interval Events: none major Constitutional: Denies: fever, chills, anorexia HEENT: Repors: no symptoms Respiratory: Reports: no symptoms Cardiovascular: Reports: no symptoms Gastrointestinal/Abdominal: Reports: no symptoms Allergies: Coded Allergies: No Known Allergies (Unverified , 02/01/20) Objective Last 24 Hour Vital Signs Date Time Temp Pulse Resp B/P (MAP) Pulse Ox O2 Delivery O2 Flow Rate FiO2 02/05/20 08:19 83 142/78 02/05/20 08:05 83 142/78 02/05/20 07:51 98.1 83 18 142/78 (99) 94 02/05/20 04:00 98.7 81 18 147/67 (93) 99 02/04/20 21:43 Nasal Cannula 2.0 02/04/20 20:10 75 158/78 02/04/20 20:00 98.4 78 18 145/66 (92) 99 02/04/20 17:19 75 158/78 02/04/20 15:46 97.9 75 18 158/78 (104) 94 02/04/20 11:29 98.2 93 18 149/73 (98) 98 Intake and Output 02/04/20 02/05/20 19:00 07:00 Intake Total 1225 ml Balance 1225 ml Intake Oral 700 ml IV Total 525 ml # Voids 2 Objective 02/05/2020 pt walking in her room with a walker; complaining of tingling and numbness in legs due to her diabetes, wishes to continue home meds including gabapentin 300 mg BID 02/04/2020 pt eating in bed; saturating well on RA 02/03/2020 pt eating in bed; now on room air; saturating well 02/02/2020 saturating well on 2 lpm NC General Appearance: WD/WN, no acute distress HEENT: normocephalic, atraumatic Respiratory: chest wall non-tender, lungs clear Cardiovascular: normal peripheral pulses, normal rate, regular rhythm, no gallop/murmur Abdomen: normal bowel sounds, soft, non tender Laboratory Tests 02/04/20 11:17: POC Whole Blood Glucose 172H 02/04/20 16:06: POC Whole Blood Glucose 331H Current Medications Medications (Trade) Dose Ordered Sig/Natalia Route PRN Reason Start Time Stop Time Status Last Admin Dose Admin Acetaminophen (Tylenol) 500 mg Q6HR PRN ORAL Temp >100.5 02/01/20 22:30 03/02/20 22:29 Amlodipine Besylate (Norvasc) 5 mg DAILY ORAL 02/05/20 09:00 03/06/20 08:59 02/05/20 08:19 Dexamethasone (Decadron) 6 mg DAILY ORAL 02/05/20 09:00 02/11/20 09:01 02/05/20 08:20 Dextrose (Dextrose 50%) 25 ml Q30M PRN IV Hypoglycemia 02/04/20 07:00 05/04/20 06:59 Dextrose (Dextrose 50%) 50 ml Q30M PRN IV Hypoglycemia 02/04/20 07:00 05/04/20 06:59 Docusate Sodium (Colace) 100 mg THREE TIMES A DAY ORAL 02/03/20 18:00 03/04/20 17:59 02/05/20 08:05 Enoxaparin Sodium (Lovenox) 40 mg DAILY SUBQ 02/02/20 09:00 05/02/20 08:59 02/05/20 08:03 Hydralazine HCl (Apresoline) 25 mg Q4H PRN ORAL BP over 160 systolic 02/03/20 17:45 05/03/20 17:44 02/04/20 08:31 Insulin Aspart (NovoLOG) BEFORE MEALS AND HS SUBQ 02/03/20 21:00 05/03/20 20:59 02/05/20 06:04 Insulin Aspart (NovoLOG) 15 units NOVOTIAC SUBQ 02/05/20 11:50 05/04/20 06:59 Insulin Detemir (Levemir) 20 units BID SUBQ 02/05/20 09:00 05/04/20 08:59 02/05/20 08:04 Metoprolol Tartrate (Lopressor) 25 mg Q12HR ORAL 02/03/20 21:00 05/03/20 20:59 02/05/20 08:05 Pantoprazole (Protonix) 40 mg EVERY 12 HOURS ORAL 02/03/20 21:00 03/04/20 20:59 02/05/20 08:05 Sodium Chloride 1,000 ml @ 50 mls/hr Q20H IV 02/03/20 17:45 03/04/20 17:44 02/04/20 08:16 Assessment/Plan Assessment/Plan 1. COVID-19 pneumonia. - Currently saturating well on RA - on Decadron; switched to oral 2. Diabetes mellitus. - monitor BGs - A1c 10.1 - on glucose lowering agents - per endo 3. Hyperkalemia.; Resolved 4. Hyponatremia.; Resolved 5. Anemia. 6. Hypertension DVT ppx - on lovenox We will follow carefully The patient was seen and examined at bedside and all new and available data was reviewed in the patients chart. I agree with the above findings, impression, and plan. (Patient was seen earlier today. Signature timestamp does not reflect patient encounter time) Clay Cain MD . The care of this patient was discussed with my supervising physician Time spent for this encounter was approximately 31 minutes Wilder Fenton Feb 05, 2020 08:51 Clay Cain MD Feb 05, 2020 18:17
[2020-02-05 10:17] LABS: BASOPHILS % (AUTO) 0.4 % (0.0-2.0); EOSINOPHILS % (AUTO) 0.1 % (0.0-3.0); HEMATOCRIT 33.7 % (37.0-47.0); HEMOGLOBIN 11.3 G/DL (12.0-16.0); MEAN CORPUSCULAR VOLUME 84 FL (80-99); MONOCYTES % (AUTO) 9.8 % (1.0-10.0); NEUTROPHILS % (AUTO) 71.6 % (45.0-75.0); PLATELET COUNT 417 K/UL (150-450); RED BLOOD COUNT 4.01 M/UL (4.20-5.40); RED CELL DISTRIBUTION WIDTH 15.1 % (11.6-14.8); WHITE BLOOD COUNT 12.6 K/UL (4.8-10.8)
[2020-02-05 10:36] LABS: ALANINE AMINOTRANSFERASE 40 U/L (12-78); ALBUMIN 2.9 G/DL (3.4-5.0); ALBUMIN/GLOBULIN RATIO 0.6 (1.0-2.7); ALKALINE PHOSPHATASE 147 U/L (46-116); ANION GAP 11 mmol/L (5-15); ASPARTATE AMINO TRANSFERASE 29 U/L (15-37); BILIRUBIN,TOTAL 0.4 MG/DL (0.2-1.0); BLOOD UREA NITROGEN 30 mg/dL (7-18); CALCIUM 8.4 MG/DL (8.5-10.1); CARBON DIOXIDE 25 MMOL/L (21-32); CHLORIDE 103 MMOL/L (98-107); CREATININE 1.5 MG/DL (0.55-1.30); PHOSPHORUS 2.8 MG/DL (2.5-4.9); POTASSIUM 4.2 MMOL/L (3.5-5.1); SODIUM 139 MMOL/L (136-145)
--- NOTE | 2020-02-05 11:02 | Nephrology Progress Note ---
Assessment/Plan Problem List: (1) Renal failure (ARF), acute on chronic (2) Dehydration (3) Electrolyte imbalance (4) Hyperglycemia (5) Pneumonia due to COVID-19 virus (6) Hypoxia (7) Anemia Assessment Acute on chronic renal failure Anemia Pneumonia due to COVID-19 virus Hypoxia Hyperglycemia History of hypertension Electrolyte imbalance Elevated lipase Plan February 04: Patient feels well. Labs reviewed. Serum creatinine 1.5. Blood pressure within normal range. Continue per consultants. February 03: Labs reviewed. Electrolytes improved. Serum creatinine improved. Continue per consultants. Norvasc added to blood pressure medication with proper parameters Change IV to normal saline Blood sugar and blood pressure control Resume Lopressor As needed hydralazine for high blood pressure Monitor renal parameters Avoid nephrotoxic's Anemia work-up Change diet to diabetic Subjective ROS Limited/Unobtainable: No Constitutional: Reports: malaise Objective Objective Last 24 Hour Vital Signs Date Time Temp Pulse Resp B/P (MAP) Pulse Ox O2 Delivery O2 Flow Rate FiO2 02/05/20 08:19 83 142/78 02/05/20 08:05 Nasal Cannula 2.0 02/05/20 08:05 83 142/78 02/05/20 08:05 Nasal Cannula 2.0 02/05/20 07:51 98.1 83 18 142/78 (99) 94 02/05/20 04:00 98.7 81 18 147/67 (93) 99 02/04/20 21:43 Nasal Cannula 2.0 02/04/20 20:10 75 158/78 02/04/20 20:00 98.4 78 18 145/66 (92) 99 02/04/20 17:19 75 158/78 02/04/20 15:46 97.9 75 18 158/78 (104) 94 02/04/20 11:29 98.2 93 18 149/73 (98) 98 Intake and Output 02/04/20 02/05/20 19:00 07:00 Intake Total 1225 ml Balance 1225 ml Intake Oral 700 ml IV Total 525 ml # Voids 2 Current Medications Medications (Trade) Dose Ordered Sig/Natalia Route PRN Reason Start Time Stop Time Status Last Admin Dose Admin Acetaminophen (Tylenol) 500 mg Q6HR PRN ORAL Temp >100.5 02/01/20 22:30 1/10/21 22:29 Amlodipine Besylate (Norvasc) 5 mg DAILY ORAL 02/05/20 09:00 03/06/20 08:59 02/05/20 08:19 Dexamethasone (Decadron) 6 mg DAILY ORAL 02/05/20 09:00 02/11/20 09:01 02/05/20 08:20 Dextrose (Dextrose 50%) 25 ml Q30M PRN IV Hypoglycemia 02/04/20 07:00 05/04/20 06:59 Dextrose (Dextrose 50%) 50 ml Q30M PRN IV Hypoglycemia 02/04/20 07:00 05/04/20 06:59 Docusate Sodium (Colace) 100 mg THREE TIMES A DAY ORAL 02/03/20 18:00 03/04/20 17:59 02/05/20 08:05 Enoxaparin Sodium (Lovenox) 40 mg DAILY SUBQ 02/02/20 09:00 05/02/20 08:59 02/05/20 08:03 Hydralazine HCl (Apresoline) 25 mg Q4H PRN ORAL BP over 160 systolic 02/03/20 17:45 05/03/20 17:44 02/04/20 08:31 Insulin Aspart (NovoLOG) BEFORE MEALS AND HS SUBQ 02/03/20 21:00 05/03/20 20:59 02/05/20 06:04 Insulin Aspart (NovoLOG) 15 units NOVOTIAC SUBQ 02/05/20 11:50 05/04/20 06:59 Insulin Detemir (Levemir) 20 units BID SUBQ 02/05/20 09:00 05/04/20 08:59 02/05/20 08:04 Metoprolol Tartrate (Lopressor) 25 mg Q12HR ORAL 02/03/20 21:00 05/03/20 20:59 02/05/20 08:05 Pantoprazole (Protonix) 40 mg EVERY 12 HOURS ORAL 02/03/20 21:00 03/04/20 20:59 02/05/20 08:05 Sodium Chloride 1,000 ml @ 50 mls/hr Q20H IV 02/03/20 17:45 03/04/20 17:44 02/04/20 08:16 Laboratory Tests 02/04/20 11:17: POC Whole Blood Glucose 172H 02/04/20 16:06: POC Whole Blood Glucose 331H 02/05/20 08:50: White Blood Count 12.6H, Red Blood Count 4.01L, Hemoglobin 11.3L, Hematocrit 33.7L, Mean Corpuscular Volume 84, Mean Corpuscular Hemoglobin 28.2, Mean Corpuscular Hemoglobin Concent 33.6, Red Cell Distribution Width 15.1H, Platelet Count 417, Mean Platelet Volume 8.0, Neutrophils (%) (Auto) 71.6, Lymphocytes (%) (Auto) 18.0L, Monocytes (%) (Auto) 9.8, Eosinophils (%) (Auto) 0.1, Basophils (%) (Auto) 0.4, Sodium Level 139, Potassium Level 4.2, Chloride Level 103, Carbon Dioxide Level 25, Anion Gap 11, Blood Urea Nitrogen 30H, Creatinine 1.5H, Estimat Glomerular Filtration Rate 34.9, Glucose Level 240H, Calcium Level 8.4L, Phosphorus Level 2.8, Magnesium Level 2.2, Total Bilirubin 0.4, Aspartate Amino Transf (AST/SGOT) 29, Alanine Aminotransferase (ALT/SGPT) 40, Alkaline Phosphatase 147H, C-Reactive Protein, Quantitative < 0.4, Total Protein 7.8, Albumin 2.9L, Globulin 4.9, Albumin/Globulin Ratio 0.6L Height (Feet): 5 Height (Inches): 6.00 Weight (Pounds): 160 General Appearance: no apparent distress Cardiovascular: normal rate Respiratory/Chest: decreased breath sounds Abdomen: soft - After his home renal Tariq Hickey MD Feb 05, 2020 11:02
[2020-02-05 12:00] VITALS: BP 160/70
--- NOTE | 2020-02-05 12:21 | Infectious Diseases Prog Note ---
Assessment/Plan Assessment/Plan IMPRESSION: 1. COVID-19 pneumonia. 2. Diabetes mellitus with hyperglycemia. 3. Hypertension. 4. Asthma. 5. Hyponatremia. 6. Lymphopenia. 7. Hyperkalemia. RECOMMENDATION: Continue supportive care. Continue dexamethasone Subjective ROS Limited/Unobtainable: No Constitutional: Reports: no symptoms Respiratory: Reports: no symptoms Gastrointestinal/Abdominal: Reports: no symptoms Genitourinary: Reports: no symptoms Allergies: Coded Allergies: No Known Allergies (Unverified , 02/01/20) Objective Last 24 Hour Vital Signs Date Time Temp Pulse Resp B/P (MAP) Pulse Ox O2 Delivery O2 Flow Rate FiO2 02/05/20 12:00 97.4 67 20 160/70 (100) 94 02/05/20 08:19 83 142/78 02/05/20 08:05 Nasal Cannula 2.0 02/05/20 08:05 83 142/78 02/05/20 08:05 Nasal Cannula 2.0 02/05/20 07:51 98.1 83 18 142/78 (99) 94 02/05/20 04:00 98.7 81 18 147/67 (93) 99 02/04/20 21:43 Nasal Cannula 2.0 02/04/20 20:10 75 158/78 02/04/20 20:00 98.4 78 18 145/66 (92) 99 02/04/20 17:19 75 158/78 02/04/20 15:46 97.9 75 18 158/78 (104) 94 Height (Feet): 5 Height (Inches): 6.00 Weight (Pounds): 160 General Appearance: no acute distress HEENT: mucous membranes moist Respiratory/Chest: lungs clear, other - oxygen by nasal cannula Cardiovascular: normal rate Abdomen: soft, non tender Extremities: no edema Neurologic/Psychiatric: alert, oriented x 3, responsive Laboratory Tests Test 02/04/20 16:06 02/05/20 08:50 POC Whole Blood Glucose 331 MG/DL (74-106) H White Blood Count 12.6 K/UL (4.8-10.8) H Red Blood Count 4.01 M/UL (4.20-5.40) L Hemoglobin 11.3 G/DL (12.0-16.0) L Hematocrit 33.7 % (37.0-47.0) L Mean Corpuscular Volume 84 FL (80-99) Mean Corpuscular Hemoglobin 28.2 PG (27.0-31.0) Mean Corpuscular Hemoglobin Concent 33.6 G/DL (32.0-36.0) Red Cell Distribution Width 15.1 % (11.6-14.8) H Platelet Count 417 K/UL (150-450) Mean Platelet Volume 8.0 FL (6.5-10.1) Neutrophils (%) (Auto) 71.6 % (45.0-75.0) Lymphocytes (%) (Auto) 18.0 % (20.0-45.0) L Monocytes (%) (Auto) 9.8 % (1.0-10.0) Eosinophils (%) (Auto) 0.1 % (0.0-3.0) Basophils (%) (Auto) 0.4 % (0.0-2.0) Sodium Level 139 MMOL/L (136-145) Potassium Level 4.2 MMOL/L (3.5-5.1) Chloride Level 103 MMOL/L (98-107) Carbon Dioxide Level 25 MMOL/L (21-32) Anion Gap 11 mmol/L (5-15) Blood Urea Nitrogen 30 mg/dL (7-18) H Creatinine 1.5 MG/DL (0.55-1.30) H Estimat Glomerular Filtration Rate 34.9 mL/min (>60) Glucose Level 240 MG/DL (74-106) H Calcium Level 8.4 MG/DL (8.5-10.1) L Phosphorus Level 2.8 MG/DL (2.5-4.9) Magnesium Level 2.2 MG/DL (1.8-2.4) Total Bilirubin 0.4 MG/DL (0.2-1.0) Aspartate Amino Transf (AST/SGOT) 29 U/L (15-37) Alanine Aminotransferase (ALT/SGPT) 40 U/L (12-78) Alkaline Phosphatase 147 U/L (46-116) H C-Reactive Protein, Quantitative < 0.4 mg/dL (0.00-0.90) Total Protein 7.8 G/DL (6.4-8.2) Albumin 2.9 G/DL (3.4-5.0) L Globulin 4.9 g/dL Albumin/Globulin Ratio 0.6 (1.0-2.7) L Current Medications Medications (Trade) Dose Ordered Sig/Natalia Route PRN Reason Start Time Stop Time Status Last Admin Dose Admin Acetaminophen (Tylenol) 500 mg Q6HR PRN ORAL Temp >100.5 02/01/20 22:30 03/02/20 22:29 Amlodipine Besylate (Norvasc) 5 mg DAILY ORAL 02/05/20 09:00 03/06/20 08:59 02/05/20 08:19 Dexamethasone (Decadron) 6 mg DAILY ORAL 02/05/20 09:00 02/11/20 09:01 02/05/20 08:20 Dextrose (Dextrose 50%) 25 ml Q30M PRN IV Hypoglycemia 02/04/20 07:00 05/04/20 06:59 Dextrose (Dextrose 50%) 50 ml Q30M PRN IV Hypoglycemia 02/04/20 07:00 05/04/20 06:59 Docusate Sodium (Colace) 100 mg THREE TIMES A DAY ORAL 02/03/20 18:00 03/04/20 17:59 02/05/20 08:05 Enoxaparin Sodium (Lovenox) 40 mg DAILY SUBQ 02/02/20 09:00 05/02/20 08:59 02/05/20 08:03 Hydralazine HCl (Apresoline) 25 mg Q4H PRN ORAL BP over 160 systolic 02/03/20 17:45 05/03/20 17:44 02/04/20 08:31 Insulin Aspart (NovoLOG) BEFORE MEALS AND HS SUBQ 02/03/20 21:00 05/03/20 20:59 02/05/20 06:04 Insulin Aspart (NovoLOG) 15 units NOVOTIAC SUBQ 02/05/20 11:50 05/04/20 06:59 Insulin Detemir (Levemir) 20 units BID SUBQ 02/05/20 09:00 05/04/20 08:59 02/05/20 08:04 Metoprolol Tartrate (Lopressor) 25 mg Q12HR ORAL 02/03/20 21:00 05/03/20 20:59 02/05/20 08:05 Pantoprazole (Protonix) 40 mg EVERY 12 HOURS ORAL 02/03/20 21:00 03/04/20 20:59 02/05/20 08:05 Sodium Chloride 1,000 ml @ 50 mls/hr Q20H IV 02/03/20 17:45 03/04/20 17:44 02/04/20 08:16 Neri Meek MD Feb 05, 2020 12:21
[2020-02-05 16:00] VITALS: BP 128/73
[2020-02-05 20:00] VITALS: BP 145/81
--- NOTE | 2020-02-05 21:11 | General Progress Note ---
Subjective ROS Limited/Unobtainable: Yes Allergies: Coded Allergies: No Known Allergies (Unverified , 02/01/20) Objective Last 24 Hour Vital Signs Date Time Temp Pulse Resp B/P (MAP) Pulse Ox O2 Delivery O2 Flow Rate FiO2 02/05/20 20:37 69 128/73 02/05/20 16:20 94 2.0 28 02/05/20 16:00 97.9 69 20 128/73 (91) 94 02/05/20 12:00 97.4 67 20 160/70 (100) 94 02/05/20 08:19 83 142/78 02/05/20 08:05 Nasal Cannula 2.0 02/05/20 08:05 83 142/78 02/05/20 08:05 Nasal Cannula 2.0 02/05/20 07:51 98.1 83 18 142/78 (99) 94 02/05/20 04:00 98.7 81 18 147/67 (93) 99 02/04/20 21:43 Nasal Cannula 2.0 Intake and Output 02/04/20 02/05/20 19:00 07:00 Intake Total 1225 ml Balance 1225 ml Intake Oral 700 ml IV Total 525 ml # Voids 2 Laboratory Tests 02/05/20 08:50: White Blood Count 12.6H, Red Blood Count 4.01L, Hemoglobin 11.3L, Hematocrit 3 3.7L, Mean Corpuscular Volume 84, Mean Corpuscular Hemoglobin 28.2, Mean Corpuscular Hemoglobin Concent 33.6, Red Cell Distribution Width 15.1H, Platelet Count 417, Mean Platelet Volume 8.0, Neutrophils (%) (Auto) 71.6, Lymphocytes (%) (Auto) 18.0L, Monocytes (%) (Auto) 9.8, Eosinophils (%) (Auto) 0.1, Basophils (%) (Auto) 0.4, Sodium Level 139, Potassium Level 4.2, Chloride Level 103, Carbon Dioxide Level 25, Anion Gap 11, Blood Urea Nitrogen 30H, Creatinine 1.5H, Estimat Glomerular Filtration Rate 34.9, Glucose Level 240H, Calcium Level 8.4L, Phosphorus Level 2.8, Magnesium Level 2.2, Total Bilirubin 0.4, Aspartate Amino Transf (AST/SGOT) 29, Alanine Aminotransferase (ALT/SGPT) 40, Alkaline Phosphatase 147H, C-Reactive Protein, Quantitative < 0.4, Total Protein 7.8, Albumin 2.9L, Globulin 4.9, Albumin/Globulin Ratio 0.6L Height (Feet): 5 Height (Inches): 6.00 Weight (Pounds): 160 Assessment/Plan Problem List: (1) Hyperglycemia ICD Codes: R73.9 - Hyperglycemia, unspecified SNOMED: 17477624 (2) Hyponatremia ICD Codes: E87.1 - Hypo-osmolality and hyponatremia SNOMED: 91472998 (3) Hypoxia ICD Codes: R09.02 - Hypoxemia; J12.89 - Other viral pneumonia SNOMED: 387251066 (4) Pneumonia due to COVID-19 virus ICD Codes: U07.1 - COVID-19; J12.89 - Other viral pneumonia SNOMED: 032488200691379567 Status: progressing Assessment/Plan: sugar is improving prn supportive care malnutrtion covid positie pna resp insuff afebrile reviewed chart and labs Alison Coffey MD Feb 05, 2020 21:11
[2020-02-06 04:00] VITALS: BP 156/79
[2020-02-06] MEDS: NovoLOG Insulin Flexpen SUBQ SCH ×7 (05:41→20:45)
--- NOTE | 2020-02-06 06:37 | General Progress Note ---
Subjective ROS Limited/Unobtainable: Yes Allergies: Coded Allergies: No Known Allergies (Unverified , 02/01/20) Subjective events noted glucose values on higher side Item Value Date Time Bedside Blood Glucose 149 mg/dl H 02/06/20 0546 Bedside Blood Glucose 280 mg/dl H 02/05/20 2100 Bedside Blood Glucose 245 mg/dl H 02/05/20 1809 Bedside Blood Glucose 225 mg/dl H 02/05/20 1228 Bedside Blood Glucose 299 mg/dl H 02/05/20 0804 Objective Last 24 Hour Vital Signs Date Time Temp Pulse Resp B/P (MAP) Pulse Ox O2 Delivery O2 Flow Rate FiO2 02/06/20 04:00 97.5 74 18 156/79 (104) 95 02/05/20 23:59 Nasal Cannula 2.0 02/05/20 20:37 69 128/73 02/05/20 20:00 97.0 72 20 145/81 (102) 94 02/05/20 16:20 94 2.0 28 02/05/20 16:00 97.9 69 20 128/73 (91) 94 02/05/20 12:00 97.4 67 20 160/70 (100) 94 02/05/20 08:19 83 142/78 02/05/20 08:05 Nasal Cannula 2.0 02/05/20 08:05 83 142/78 02/05/20 08:05 Nasal Cannula 2.0 02/05/20 07:51 98.1 83 18 142/78 (99) 94 Intake and Output 02/05/20 02/06/20 19:00 07:00 Intake Total 900 ml 250 ml Balance 900 ml 250 ml Intake Oral 900 ml 250 ml # Voids 3 2 Laboratory Tests 02/05/20 08:50: White Blood Count 12.6H, Red Blood Count 4.01L, Hemoglobin 11.3L, Hematocrit 33.7L, Mean Corpuscular Volume 84, Mean Corpuscular Hemoglobin 28.2, Mean Corpuscular Hemoglobin Concent 33.6, Red Cell Distribution Width 15.1H, Platelet Count 417, Mean Platelet Volume 8.0, Neutrophils (%) (Auto) 71.6, Lymphocytes (%) (Auto) 18.0L, Monocytes (%) (Auto) 9.8, Eosinophils (%) (Auto) 0.1, Basophils (%) (Auto) 0.4, Sodium Level 139, Potassium Level 4.2, Chloride Level 103, Carbon Dioxide Level 25, Anion Gap 11, Blood Urea Nitrogen 30H, Creatinine 1.5H, Estimat Glomerular Filtration Rate 34.9, Glucose Level 240H, Calcium Level 8.4L, Phosphorus Level 2.8, Magnesium Level 2.2, Total Bilirubin 0.4, Aspartate Amino Transf (AST/SGOT) 29, Alanine Aminotransferase (ALT/SGPT) 40, Alkaline Phosphatase 147H, C-Reactive Protein, Quantitative < 0.4, Total Protein 7.8, Albumin 2.9L, Globulin 4.9, Albumin/Globulin Ratio 0.6L Height (Feet): 5 Height (Inches): 6.00 Weight (Pounds): 160 Objective Current Medications Medications (Trade) Dose Ordered Sig/Natalia Route PRN Reason Start Time Stop Time Status Last Admin Dose Admin Acetaminophen (Tylenol) 500 mg Q6HR PRN ORAL Temp >100.5 02/01/20 22:30 03/02/20 22:29 Amlodipine Besylate (Norvasc) 5 mg DAILY ORAL 02/05/20 09:00 03/06/20 08:59 02/05/20 08:19 Dexamethasone (Decadron) 6 mg DAILY ORAL 02/05/20 09:00 02/11/20 09:01 02/05/20 08:20 Dextrose (Dextrose 50%) 25 ml Q30M PRN IV Hypoglycemia 02/04/20 07:00 05/04/20 06:59 Dextrose (Dextrose 50%) 50 ml Q30M PRN IV Hypoglycemia 02/04/20 07:00 05/04/20 06:59 Docusate Sodium (Colace) 100 mg THREE TIMES A DAY ORAL 02/03/20 18:00 03/04/20 17:59 02/05/20 18:08 Enoxaparin Sodium (Lovenox) 40 mg DAILY SUBQ 02/02/20 09:00 05/02/20 08:59 02/05/20 08:03 Hydralazine HCl (Apresoline) 25 mg Q4H PRN ORAL BP over 160 systolic 02/03/20 17:45 05/03/20 17:44 02/04/20 08:31 Insulin Aspart (NovoLOG) BEFORE MEALS AND HS SUBQ 02/03/20 21:00 05/03/20 20:59 02/06/20 05:41 Insulin Aspart (NovoLOG) 15 units NOVOTIAC SUBQ 02/05/20 11:50 05/04/20 06:59 02/05/20 17:36 Insulin Detemir (Levemir) 20 units BID SUBQ 02/05/20 09:00 05/04/20 08:59 02/05/20 18:09 Metoprolol Tartrate (Lopressor) 25 mg Q12HR ORAL 02/03/20 21:00 05/03/20 20:59 02/05/20 20:37 Pantoprazole (Protonix) 40 mg EVERY 12 HOURS ORAL 02/03/20 21:00 03/04/20 20:59 02/05/20 20:37 Sodium Chloride 1,000 ml @ 50 mls/hr Q20H IV 02/03/20 17:45 03/04/20 17:44 02/04/20 08:16 Assessment/Plan Problem List: (1) Pneumonia due to COVID-19 virus ICD Codes: U07.1 - COVID-19; J12.89 - Other viral pneumonia SNOMED: 506404817248003814 (2) Hyponatremia ICD Codes: E87.1 - Hypo-osmolality and hyponatremia SNOMED: 37380670 (3) Hyperglycemia ICD Codes: R73.9 - Hyperglycemia, unspecified SNOMED: 70386326 Status: progressing Assessment/Plan: Levemir 20 units bid Novolog 15 units ac tid continue Novolog sliding scale ac Hemanth Pierce MD Feb 06, 2020 06:37
[2020-02-06 08:00] VITALS: BP 158/76
[2020-02-06] MEDS: Docusate 100mg cap ORAL SCH ×3 (09:03→17:53)
[2020-02-06] MEDS: Enoxaparin 40mg Inj SUBQ SCH (09:03)
[2020-02-06] MEDS: Levemir Flexpen SUBQ SCH ×2 (09:05→17:54)
[2020-02-06 12:00] VITALS: BP 139/57
--- NOTE | 2020-02-06 12:19 | Infectious Diseases Prog Note ---
Assessment/Plan Assessment/Plan IMPRESSION: 1. COVID-19 pneumonia. 2. Diabetes mellitus with hyperglycemia. 3. Hypertension. 4. Asthma. 5. Hyponatremia. 6. Lymphopenia. 7. Hyperkalemia, corrected RECOMMENDATION: Continue supportive care. Discontinue dexamethasone Can be discharged Subjective ROS Limited/Unobtainable: No Constitutional: Reports: no symptoms, other - feels better Respiratory: Reports: no symptoms Gastrointestinal/Abdominal: Reports: no symptoms Genitourinary: Reports: no symptoms Neurologic: Reports: no symptoms Allergies: Coded Allergies: No Known Allergies (Unverified , 02/01/20) Objective Last 24 Hour Vital Signs Date Time Temp Pulse Resp B/P (MAP) Pulse Ox O2 Delivery O2 Flow Rate FiO2 02/06/20 12:00 98.1 64 18 139/57 (84) 97 02/06/20 09:03 74 158/76 02/06/20 09:03 74 158/76 02/06/20 09:00 Nasal Cannula 2.0 02/06/20 08:00 97.1 74 18 158/76 (103) 97 02/06/20 04:00 97.5 74 18 156/79 (104) 95 02/05/20 23:59 Nasal Cannula 2.0 02/05/20 20:37 69 128/73 02/05/20 20:00 97.0 72 20 145/81 (102) 94 02/05/20 16:20 94 2.0 28 02/05/20 16:00 97.9 69 20 128/73 (91) 94 Height (Feet): 5 Height (Inches): 6.00 Weight (Pounds): 160 General Appearance: no acute distress HEENT: mucous membranes moist Respiratory/Chest: lungs clear Cardiovascular: normal rate Abdomen: soft, non tender Extremities: no edema Neurologic/Psychiatric: alert, oriented x 3, responsive Current Medications Medications (Trade) Dose Ordered Sig/Natalia Route PRN Reason Start Time Stop Time Status Last Admin Dose Admin Acetaminophen (Tylenol) 500 mg Q6HR PRN ORAL Temp >100.5 02/01/20 22:30 03/02/20 22:29 Amlodipine Besylate (Norvasc) 5 mg DAILY ORAL 02/05/20 09:00 03/06/20 08:59 02/06/20 09:03 Dexamethasone (Decadron) 6 mg DAILY ORAL 02/05/20 09:00 02/11/20 09:01 02/06/20 09:03 Dextrose (Dextrose 50%) 25 ml Q30M PRN IV Hypoglycemia 02/04/20 07:00 05/04/20 06:59 Dextrose (Dextrose 50%) 50 ml Q30M PRN IV Hypoglycemia 02/04/20 07:00 05/04/20 06:59 Docusate Sodium (Colace) 100 mg THREE TIMES A DAY ORAL 02/03/20 18:00 03/04/20 17:59 02/06/20 09:03 Enoxaparin Sodium (Lovenox) 40 mg DAILY SUBQ 02/02/20 09:00 05/02/20 08:59 02/06/20 09:03 Hydralazine HCl (Apresoline) 25 mg Q4H PRN ORAL BP over 160 systolic 02/03/20 17:45 05/03/20 17:44 02/04/20 08:31 Insulin Aspart (NovoLOG) BEFORE MEALS AND HS SUBQ 02/03/20 21:00 05/03/20 20:59 02/06/20 05:41 Insulin Aspart (NovoLOG) 15 units NOVOTIAC SUBQ 02/05/20 11:50 05/04/20 06:59 02/05/20 17:36 Insulin Detemir (Levemir) 20 units BID SUBQ 02/05/20 09:00 05/04/20 08:59 02/06/20 09:05 Metoprolol Tartrate (Lopressor) 25 mg Q12HR ORAL 02/03/20 21:00 05/03/20 20:59 02/06/20 09:03 Pantoprazole (Protonix) 40 mg EVERY 12 HOURS ORAL 02/03/20 21:00 03/04/20 20:59 02/06/20 09:03 Sodium Chloride 1,000 ml @ 50 mls/hr Q20H IV 02/03/20 17:45 03/04/20 17:44 02/04/20 08:16 Neri Meek MD Feb 06, 2020 12:19
--- NOTE | 2020-02-06 12:20 | Pulmonology Progress Note ---
Subjective ROS Limited/Unobtainable: Yes Interval Events: none major Constitutional: Denies: fever, chills, anorexia HEENT: Repors: no symptoms Respiratory: Reports: no symptoms Cardiovascular: Reports: no symptoms Gastrointestinal/Abdominal: Reports: no symptoms Allergies: Coded Allergies: No Known Allergies (Unverified , 02/01/20) Objective Last 24 Hour Vital Signs Date Time Temp Pulse Resp B/P (MAP) Pulse Ox O2 Delivery O2 Flow Rate FiO2 02/06/20 12:00 98.1 64 18 139/57 (84) 97 02/06/20 09:03 74 158/76 02/06/20 09:03 74 158/76 02/06/20 09:00 Nasal Cannula 2.0 02/06/20 08:00 97.1 74 18 158/76 (103) 97 02/06/20 04:00 97.5 74 18 156/79 (104) 95 02/05/20 23:59 Nasal Cannula 2.0 02/05/20 20:37 69 128/73 02/05/20 20:00 97.0 72 20 145/81 (102) 94 02/05/20 16:20 94 2.0 28 02/05/20 16:00 97.9 69 20 128/73 (91) 94 Intake and Output 02/05/20 02/06/20 19:00 07:00 Intake Total 900 ml 250 ml Balance 900 ml 250 ml Intake Oral 900 ml 250 ml # Voids 3 2 Objective 02/06/2020 pt sitting in a chair; saturating well on RA; NAD 02/05/2020 pt walking in her room with a walker; complaining of tingling and numbness in legs due to her diabetes, wishes to continue home meds including gabapentin 300 mg BID 02/04/2020 pt eating in bed; saturating well on RA 02/03/2020 pt eating in bed; now on room air; saturating well 02/02/2020 saturating well on 2 lpm NC General Appearance: WD/WN, no acute distress HEENT: normocephalic, atraumatic Respiratory: chest wall non-tender, lungs clear Cardiovascular: normal peripheral pulses, normal rate, regular rhythm, no gallop/murmur Abdomen: normal bowel sounds, soft, non tender Current Medications Medications (Trade) Dose Ordered Sig/Natalia Route PRN Reason Start Time Stop Time Status Last Admin Dose Admin Acetaminophen (Tylenol) 500 mg Q6HR PRN ORAL Temp >100.5 02/01/20 22:30 03/02/20 22:29 Amlodipine Besylate (Norvasc) 5 mg DAILY ORAL 02/05/20 09:00 03/06/20 08:59 02/06/20 09:03 Dexamethasone (Decadron) 6 mg DAILY ORAL 02/05/20 09:00 02/11/20 09:01 02/06/20 09:03 Dextrose (Dextrose 50%) 25 ml Q30M PRN IV Hypoglycemia 02/04/20 07:00 05/04/20 06:59 Dextrose (Dextrose 50%) 50 ml Q30M PRN IV Hypoglycemia 02/04/20 07:00 05/04/20 06:59 Docusate Sodium (Colace) 100 mg THREE TIMES A DAY ORAL 02/03/20 18:00 03/04/20 17:59 02/06/20 09:03 Enoxaparin Sodium (Lovenox) 40 mg DAILY SUBQ 02/02/20 09:00 05/02/20 08:59 02/06/20 09:03 Hydralazine HCl (Apresoline) 25 mg Q4H PRN ORAL BP over 160 systolic 02/03/20 17:45 05/03/20 17:44 02/04/20 08:31 Insulin Aspart (NovoLOG) BEFORE MEALS AND HS SUBQ 02/03/20 21:00 05/03/20 20:59 02/06/20 05:41 Insulin Aspart (NovoLOG) 15 units NOVOTIAC SUBQ 02/05/20 11:50 05/04/20 06:59 02/05/20 17:36 Insulin Detemir (Levemir) 20 units BID SUBQ 02/05/20 09:00 05/04/20 08:59 02/06/20 09:05 Metoprolol Tartrate (Lopressor) 25 mg Q12HR ORAL 02/03/20 21:00 05/03/20 20:59 02/06/20 09:03 Pantoprazole (Protonix) 40 mg EVERY 12 HOURS ORAL 02/03/20 21:00 03/04/20 20:59 02/06/20 09:03 Sodium Chloride 1,000 ml @ 50 mls/hr Q20H IV 02/03/20 17:45 03/04/20 17:44 02/04/20 08:16 Assessment/Plan Assessment/Plan 1. COVID-19 pneumonia. - Currently saturating well on RA - on Decadron; switched to oral 2. Diabetes mellitus. - monitor BGs - A1c 10.1 - on glucose lowering agents - per endo 3. Hyperkalemia.; Resolved 4. Hyponatremia.; Resolved 5. Anemia. 6. Hypertension - on antihypertensives DVT ppx - on lovenox We will follow carefully. The care of this patient was discussed with my supervising physician Time spent for this encounter was approximately 31 minutes The patient was seen and examined at bedside and all new and available data was reviewed in the patients chart. I agree with the above findings, impression, and plan. (Patient was seen earlier today. Signature timestamp does not reflect patient encounter time) Wilder Lindsey MD Feb 06, 2020 12:20 Clay Cain MD Feb 06, 2020 17:38
[2020-02-06 16:00] VITALS: BP 126/82
--- NOTE | 2020-02-06 17:15 | Nephrology Progress Note ---
Assessment/Plan Problem List: (1) Renal failure (ARF), acute on chronic (2) Dehydration (3) Electrolyte imbalance (4) Hyperglycemia (5) Pneumonia due to COVID-19 virus (6) Hypoxia (7) Anemia Assessment Acute on chronic renal failure Anemia Pneumonia due to COVID-19 virus Hypoxia Hyperglycemia History of hypertension Electrolyte imbalance Elevated lipase Plan February 06: Labs reviewed. Creatinine 1.4. Potassium 5.2. Suspect hemolysis. Blood pressure medication adjusted. Normal saline bolus given. Continue to monitor renal parameters. February 05: Status quo. No labs drawn today. Blood pressure within acceptable range. Continue per current management. February 04: Patient feels well. Labs reviewed. Serum creatinine 1.5. Blood pressure within normal range. Continue per consultants. February 03: Labs reviewed. Electrolytes improved. Serum creatinine improved. Continue per consultants. Norvasc added to blood pressure medication with proper parameters Change IV to normal saline Blood sugar and blood pressure control Resume Lopressor As needed hydralazine for high blood pressure Monitor renal parameters Avoid nephrotoxic's Anemia work-up Change diet to diabetic Subjective ROS Limited/Unobtainable: No Constitutional: Reports: malaise Objective Objective Last 24 Hour Vital Signs Date Time Temp Pulse Resp B/P (MAP) Pulse Ox O2 Delivery O2 Flow Rate FiO2 02/06/20 16:00 98.6 74 18 126/82 (97) 97 02/06/20 12:00 98.1 64 18 139/57 (84) 97 02/06/20 09:03 74 158/76 02/06/20 09:03 74 158/76 02/06/20 09:00 Nasal Cannula 2.0 02/06/20 08:00 97.1 74 18 158/76 (103) 97 02/06/20 04:00 97.5 74 18 156/79 (104) 95 02/05/20 23:59 Nasal Cannula 2.0 02/05/20 20:37 69 128/73 02/05/20 20:00 97.0 72 20 145/81 (102) 94 Intake and Output 02/05/20 02/06/20 19:00 07:00 Intake Total 900 ml 250 ml Balance 900 ml 250 ml Intake Oral 900 ml 250 ml # Voids 3 2 No labs drawn today Height (Feet): 5 Height (Inches): 6.00 Weight (Pounds): 160 General Appearance: no apparent distress Cardiovascular: normal rate Respiratory/Chest: decreased breath sounds Abdomen: soft Tariq Hickey MD Feb 06, 2020 17:15
[2020-02-06 20:00] VITALS: BP 150/67
--- NOTE | 2020-02-06 21:28 | General Progress Note ---
Subjective ROS Limited/Unobtainable: Yes Allergies: Coded Allergies: No Known Allergies (Unverified , 02/01/20) Objective Last 24 Hour Vital Signs Date Time Temp Pulse Resp B/P (MAP) Pulse Ox O2 Delivery O2 Flow Rate FiO2 02/06/20 20:41 74 126/82 02/06/20 16:00 98.6 74 18 126/82 (97) 97 02/06/20 12:00 98.1 64 18 139/57 (84) 97 02/06/20 09:03 74 158/76 02/06/20 09:03 74 158/76 02/06/20 09:00 Nasal Cannula 2.0 02/06/20 08:00 97.1 74 18 158/76 (103) 97 02/06/20 04:00 97.5 74 18 156/79 (104) 95 02/05/20 23:59 Nasal Cannula 2.0 Intake and Output 02/05/20 02/06/20 19:00 07:00 Intake Total 900 ml 250 ml Balance 900 ml 250 ml Intake Oral 900 ml 250 ml # Voids 3 2 Height (Feet): 5 Height (Inches): 6.00 Weight (Pounds): 160 Assessment/Plan Problem List: (1) Hyperglycemia ICD Codes: R73.9 - Hyperglycemia, unspecified SNOMED: 14407524 (2) Hyponatremia ICD Codes: E87.1 - Hypo-osmolality and hyponatremia SNOMED: 89115401 (3) Hypoxia ICD Codes: R09.02 - Hypoxemia; J12.89 - Other viral pneumonia SNOMED: 806457716 (4) Pneumonia due to COVID-19 virus ICD Codes: U07.1 - COVID-19; J12.89 - Other viral pneumonia SNOMED: 235154076931463760 Status: progressing Assessment/Plan: niddm check sugar covid positie pna supportive care reviewed chart and labs Alison Coffey MD Feb 06, 2020 21:28
[2020-02-07] VITALS: BP 145/72
[2020-02-07 04:00] VITALS: BP 151/76
[2020-02-07] MEDS: NovoLOG Insulin Flexpen SUBQ SCH ×6 (05:51→17:36)
--- NOTE | 2020-02-07 06:37 | General Progress Note ---
Subjective ROS Limited/Unobtainable: Yes Allergies: Coded Allergies: No Known Allergies (Unverified , 02/01/20) Subjective events noted fasting glucose stable mealtime glucose elevated - missed Novolog 15 u Item Value Date Time Bedside Blood Glucose 152 mg/dl H 02/07/20 0552 Bedside Blood Glucose 381 mg/dl H 02/06/20 2100 Bedside Blood Glucose 315 mg/dl H 02/06/20 1754 Bedside Blood Glucose 177 mg/dl H 02/06/20 1252 Bedside Blood Glucose 149 mg/dl H 02/06/20 0905 Bedside Blood Glucose 149 mg/dl H 02/06/20 0546 Objective Last 24 Hour Vital Signs Date Time Temp Pulse Resp B/P (MAP) Pulse Ox O2 Delivery O2 Flow Rate FiO2 02/07/20 04:00 97.7 67 20 151/76 (101) 98 02/07/20 00:00 97.9 64 20 145/72 (96) 98 02/06/20 22:48 Nasal Cannula 2.0 02/06/20 20:41 74 126/82 02/06/20 20:24 94 2.0 28 02/06/20 20:00 97.6 61 20 150/67 (94) 97 02/06/20 16:00 98.6 74 18 126/82 (97) 97 02/06/20 12:00 98.1 64 18 139/57 (84) 97 02/06/20 09:03 74 158/76 02/06/20 09:03 74 158/76 02/06/20 09:00 Nasal Cannula 2.0 02/06/20 08:00 97.1 74 18 158/76 (103) 97 Intake and Output 02/06/20 02/07/20 19:00 07:00 Intake Total 740 ml 300 ml Balance 740 ml 300 ml Intake Oral 740 ml 300 ml # Voids 2 2 Height (Feet): 5 Height (Inches): 6.00 Weight (Pounds): 160 Objective Current Medications Medications (Trade) Dose Ordered Sig/Natalia Route PRN Reason Start Time Stop Time Status Last Admin Dose Admin Acetaminophen (Tylenol) 500 mg Q6HR PRN ORAL Temp >100.5 02/01/20 22:30 03/02/20 22:29 Amlodipine Besylate (Norvasc) 5 mg DAILY ORAL 02/05/20 09:00 03/06/20 08:59 02/06/20 09:03 Dextrose (Dextrose 50%) 25 ml Q30M PRN IV Hypoglycemia 02/04/20 07:00 05/04/20 06:59 Dextrose (Dextrose 50%) 50 ml Q30M PRN IV Hypoglycemia 02/04/20 07:00 05/04/20 06:59 Docusate Sodium (Colace) 100 mg THREE TIMES A DAY ORAL 02/03/20 18:00 03/04/20 17:59 02/06/20 17:53 Enoxaparin Sodium (Lovenox) 40 mg DAILY SUBQ 02/02/20 09:00 05/02/20 08:59 02/06/20 09:03 Hydralazine HCl (Apresoline) 25 mg Q4H PRN ORAL BP over 160 systolic 02/03/20 17:45 05/03/20 17:44 02/04/20 08:31 Insulin Aspart (NovoLOG) BEFORE MEALS AND HS SUBQ 02/03/20 21:00 05/03/20 20:59 02/07/20 05:51 Insulin Aspart (NovoLOG) 15 units NOVOTIAC SUBQ 02/05/20 11:50 05/04/20 06:59 02/06/20 16:51 Insulin Detemir (Levemir) 20 units BID SUBQ 02/05/20 09:00 05/04/20 08:59 02/06/20 17:54 Metoprolol Tartrate (Lopressor) 25 mg Q12HR ORAL 02/03/20 21:00 05/03/20 20:59 02/06/20 20:41 Pantoprazole (Protonix) 40 mg DAILY ORAL 02/07/20 09:00 03/08/20 08:59 Sodium Chloride 1,000 ml @ 50 mls/hr Q20H IV 02/03/20 17:45 03/04/20 17:44 02/06/20 14:35 Assessment/Plan Problem List: (1) Pneumonia due to COVID-19 virus ICD Codes: U07.1 - COVID-19; J12.89 - Other viral pneumonia SNOMED: 105391159373119816 (2) Hyponatremia ICD Codes: E87.1 - Hypo-osmolality and hyponatremia SNOMED: 11088402 (3) Hyperglycemia ICD Codes: R73.9 - Hyperglycemia, unspecified SNOMED: 57291282 Status: progressing Assessment/Plan: Levemir 20 units bid Novolog 15 units ac tid continue Novolog sliding scale ac hs Hemanth Pierce MD Feb 07, 2020 06:37
[2020-02-07 07:37] LABS: BASOPHILS % (AUTO) 0.4 % (0.0-2.0); EOSINOPHILS % (AUTO) 0.2 % (0.0-3.0); HEMATOCRIT 31.3 % (37.0-47.0); HEMOGLOBIN 10.6 G/DL (12.0-16.0); LYMPHOCYTES % (AUTO) 14.1 % (20.0-45.0); MEAN CORPUSCULAR VOLUME 86 FL (80-99); MONOCYTES % (AUTO) 9.1 % (1.0-10.0); NEUTROPHILS % (AUTO) 76.2 % (45.0-75.0); PLATELET COUNT 364 K/UL (150-450); RED BLOOD COUNT 3.62 M/UL (4.20-5.40); WHITE BLOOD COUNT 9.5 K/UL (4.8-10.8)
[2020-02-07 08:00] VITALS: BP 164/78
[2020-02-07 08:16] LABS: ALBUMIN 2.5 G/DL (3.4-5.0); ALBUMIN/GLOBULIN RATIO 0.6 (1.0-2.7); BILIRUBIN,TOTAL 0.3 MG/DL (0.2-1.0); CALCIUM 8.4 MG/DL (8.5-10.1); CREATININE 1.4 MG/DL (0.55-1.30); PHOSPHORUS 3.5 MG/DL (2.5-4.9); POTASSIUM 5.2 MMOL/L (3.5-5.1)
[2020-02-07] MEDS: Docusate 100mg cap ORAL SCH ×3 (08:41→17:27)
[2020-02-07] MEDS: Enoxaparin 40mg Inj SUBQ SCH (08:42)
[2020-02-07] MEDS ORDERED: Levemir Flexpen SUBQ SCH (09:00)
--- NOTE | 2020-02-07 10:53 | Pulmonology Progress Note ---
Subjective ROS Limited/Unobtainable: Yes Interval Events: none major Constitutional: Denies: fever, chills, anorexia HEENT: Repors: no symptoms Respiratory: Reports: no symptoms Cardiovascular: Reports: no symptoms Gastrointestinal/Abdominal: Reports: no symptoms Allergies: Coded Allergies: No Known Allergies (Unverified , 02/01/20) Objective Last 24 Hour Vital Signs Date Time Temp Pulse Resp B/P (MAP) Pulse Ox O2 Delivery O2 Flow Rate FiO2 02/07/20 08:42 73 164/78 02/07/20 08:00 98.2 73 18 164/78 (106) 93 02/07/20 04:00 97.7 67 20 151/76 (101) 98 02/07/20 00:00 97.9 64 20 145/72 (96) 98 02/06/20 22:48 Nasal Cannula 2.0 02/06/20 20:41 74 126/82 02/06/20 20:24 94 2.0 28 02/06/20 20:00 97.6 61 20 150/67 (94) 97 02/06/20 16:00 98.6 74 18 126/82 (97) 97 02/06/20 12:00 98.1 64 18 139/57 (84) 97 Intake and Output 02/06/20 02/07/20 19:00 07:00 Intake Total 740 ml 300 ml Balance 740 ml 300 ml Intake Oral 740 ml 300 ml # Voids 2 2 Objective 02/07/2020 saturating at 97% on 2 lpm NC; NAD 02/06/2020 pt sitting in a chair; saturating well on RA; NAD 02/05/2020 pt walking in her room with a walker; complaining of tingling and numbness in legs due to her diabetes, wishes to continue home meds including gabapentin 300 mg BID 02/04/2020 pt eating in bed; saturating well on RA 02/03/2020 pt eating in bed; now on room air; saturating well 02/02/2020 saturating well on 2 lpm NC General Appearance: WD/WN, no acute distress HEENT: normocephalic, atraumatic Respiratory: chest wall non-tender, lungs clear Cardiovascular: normal peripheral pulses, normal rate, regular rhythm, no gallop/murmur Abdomen: normal bowel sounds, soft, non tender Laboratory Tests 02/07/20 04:30: White Blood Count 9.5, Red Blood Count 3.62L, Hemoglobin 10.6L, Hematocrit 31.3L , Mean Corpuscular Volume 86, Mean Corpuscular Hemoglobin 29.2, Mean Corpuscular Hemoglobin Concent 33.8, Red Cell Distribution Width 14.0, Platelet Count 364, Mean Platelet Volume 7.7, Neutrophils (%) (Auto) 76.2H, Lymphocytes (%) (Auto) 14.1L, Monocytes (%) (Auto) 9.1, Eosinophils (%) (Auto) 0.2, Basophils (%) (Auto) 0.4, Sodium Level 136, Potassium Level 5.2H, Chloride Level 103, Carbon Dioxide Level 27, Anion Gap 6, Blood Urea Nitrogen 29H, Creatinine 1.4H, Estimat Glomerular Filtration Rate 37.8, Glucose Level 143H, Calcium Level 8.4L, Phosphorus Level 3.5, Magnesium Level 2.2, Total Bilirubin 0.3, Aspartate Amino Transf (AST/SGOT) 17, Alanine Aminotransferase (ALT/SGPT) 28, Alkaline Phosphatase 124H, Total Protein 6.8, Albumin 2.5L, Globulin 4.3, Albumin/Globulin Ratio 0.6L Current Medications Medications (Trade) Dose Ordered Sig/Natalia Route PRN Reason Start Time Stop Time Status Last Admin Dose Admin Acetaminophen (Tylenol) 500 mg Q6HR PRN ORAL Temp >100.5 02/01/20 22:30 03/02/20 22:29 Amlodipine Besylate (Norvasc) 5 mg DAILY ORAL 02/05/20 09:00 03/06/20 08:59 02/06/20 09:03 Dextrose (Dextrose 50%) 25 ml Q30M PRN IV Hypoglycemia 02/04/20 07:00 05/04/20 06:59 Dextrose (Dextrose 50%) 50 ml Q30M PRN IV Hypoglycemia 02/04/20 07:00 05/04/20 06:59 Docusate Sodium (Colace) 100 mg THREE TIMES A DAY ORAL 02/03/20 18:00 03/04/20 17:59 02/07/20 08:41 Enoxaparin Sodium (Lovenox) 40 mg DAILY SUBQ 02/02/20 09:00 05/02/20 08:59 02/07/20 08:42 Hydralazine HCl (Apresoline) 25 mg Q4H PRN ORAL BP over 160 systolic 02/03/20 17:45 05/03/20 17:44 02/04/20 08:31 Insulin Aspart (NovoLOG) BEFORE MEALS AND HS SUBQ 02/03/20 21:00 05/03/20 20:59 02/07/20 05:51 Insulin Aspart (NovoLOG) 8 units NOVOTIAC SUBQ 02/07/20 11:50 05/04/20 06:59 Insulin Detemir (Levemir) 10 units Q12HR SUBQ 02/07/20 09:00 05/07/20 08:59 02/07/20 08:43 Metoprolol Tartrate (Lopressor) 25 mg Q12HR ORAL 02/03/20 21:00 05/03/20 20:59 02/07/20 08:42 Pantoprazole (Protonix) 40 mg DAILY ORAL 02/07/20 09:00 03/08/20 08:59 02/07/20 08:41 Sodium Chloride 1,000 ml @ 50 mls/hr Q20H IV 02/03/20 17:45 03/04/20 17:44 02/06/20 14:35 Assessment/Plan Assessment/Plan 1. COVID-19 pneumonia. - Currently saturating well on 2 lpm NC - Decadron dced per ID 2. Diabetes mellitus. - monitor BGs - A1c 10.1 - on glucose lowering agents - per endo 3. Hyperkalemia.; Resolved 4. Hyponatremia.; Resolved 5. Anemia. 6. Hypertension - on antihypertensives DVT ppx - on lovenox We will follow carefully. The care of this patient was discussed with my supervising physician Time spent for this encounter was approximately 31 minutes Wilder Fenton Feb 07, 2020 10:53 Clay Cain MD Feb 07, 2020 17:33
[2020-02-07 12:00] VITALS: BP 157/79
--- NOTE | 2020-02-07 12:12 | Infectious Diseases Prog Note ---
Assessment/Plan Assessment/Plan IMPRESSION: 1. COVID-19 pneumonia. 2. Diabetes mellitus with hyperglycemia. 3. Hypertension. 4. Asthma. 5. Hyponatremia. 6. Lymphopenia. 7. Hyperkalemia, corrected RECOMMENDATION: Continue supportive care. Can be discharged Subjective ROS Limited/Unobtainable: Yes Constitutional: Denies: fever Allergies: Coded Allergies: No Known Allergies (Unverified , 02/01/20) Objective Last 24 Hour Vital Signs Date Time Temp Pulse Resp B/P (MAP) Pulse Ox O2 Delivery O2 Flow Rate FiO2 02/07/20 08:42 73 164/78 02/07/20 08:00 98.2 73 18 164/78 (106) 93 02/07/20 04:00 97.7 67 20 151/76 (101) 98 02/07/20 00:00 97.9 64 20 145/72 (96) 98 02/06/20 22:48 Nasal Cannula 2.0 02/06/20 20:41 74 126/82 02/06/20 20:24 94 2.0 28 02/06/20 20:00 97.6 61 20 150/67 (94) 97 02/06/20 16:00 98.6 74 18 126/82 (97) 97 Height (Feet): 5 Height (Inches): 6.00 Weight (Pounds): 160 General Appearance: no acute distress HEENT: mucous membranes moist Respiratory/Chest: lungs clear Cardiovascular: normal rate Abdomen: soft, non tender Extremities: no edema Neurologic/Psychiatric: other - sleeping Laboratory Tests Test 02/07/20 04:30 White Blood Count 9.5 K/UL (4.8-10.8) Red Blood Count 3.62 M/UL (4.20-5.40) L Hemoglobin 10.6 G/DL (12.0-16.0) L Hematocrit 31.3 % (37.0-47.0) L Mean Corpuscular Volume 86 FL (80-99) Mean Corpuscular Hemoglobin 29.2 PG (27.0-31.0) Mean Corpuscular Hemoglobin Concent 33.8 G/DL (32.0-36.0) Red Cell Distribution Width 14.0 % (11.6-14.8) Platelet Count 364 K/UL (150-450) Mean Platelet Volume 7.7 FL (6.5-10.1) Neutrophils (%) (Auto) 76.2 % (45.0-75.0) H Lymphocytes (%) (Auto) 14.1 % (20.0-45.0) L Monocytes (%) (Auto) 9.1 % (1.0-10.0) Eosinophils (%) (Auto) 0.2 % (0.0-3.0) Basophils (%) (Auto) 0.4 % (0.0-2.0) Sodium Level 136 MMOL/L (136-145) Potassium Level 5.2 MMOL/L (3.5-5.1) H Chloride Level 103 MMOL/L (98-107) Carbon Dioxide Level 27 MMOL/L (21-32) Anion Gap 6 mmol/L (5-15) Blood Urea Nitrogen 29 mg/dL (7-18) H Creatinine 1.4 MG/DL (0.55-1.30) H Estimat Glomerular Filtration Rate 37.8 mL/min (>60) Glucose Level 143 MG/DL (74-106) H Calcium Level 8.4 MG/DL (8.5-10.1) L Phosphorus Level 3.5 MG/DL (2.5-4.9) Magnesium Level 2.2 MG/DL (1.8-2.4) Total Bilirubin 0.3 MG/DL (0.2-1.0) Aspartate Amino Transf (AST/SGOT) 17 U/L (15-37) Alanine Aminotransferase (ALT/SGPT) 28 U/L (12-78) Alkaline Phosphatase 124 U/L (46-116) H Total Protein 6.8 G/DL (6.4-8.2) Albumin 2.5 G/DL (3.4-5.0) L Globulin 4.3 g/dL Albumin/Globulin Ratio 0.6 (1.0-2.7) L Current Medications Medications (Trade) Dose Ordered Sig/Natalia Route PRN Reason Start Time Stop Time Status Last Admin Dose Admin Acetaminophen (Tylenol) 500 mg Q6HR PRN ORAL Temp >100.5 02/01/20 22:30 03/02/20 22:29 Amlodipine Besylate (Norvasc) 5 mg DAILY ORAL 02/05/20 09:00 03/06/20 08:59 02/06/20 09:03 Dextrose (Dextrose 50%) 25 ml Q30M PRN IV Hypoglycemia 02/04/20 07:00 05/04/20 06:59 Dextrose (Dextrose 50%) 50 ml Q30M PRN IV Hypoglycemia 02/04/20 07:00 05/04/20 06:59 Docusate Sodium (Colace) 100 mg THREE TIMES A DAY ORAL 02/03/20 18:00 03/04/20 17:59 02/07/20 08:41 Enoxaparin Sodium (Lovenox) 40 mg DAILY SUBQ 02/02/20 09:00 05/02/20 08:59 02/07/20 08:42 Hydralazine HCl (Apresoline) 25 mg Q4H PRN ORAL BP over 160 systolic 02/03/20 17:45 05/03/20 17:44 02/04/20 08:31 Insulin Aspart (NovoLOG) BEFORE MEALS AND HS SUBQ 02/03/20 21:00 05/03/20 20:59 02/07/20 05:51 Insulin Aspart (NovoLOG) 8 units NOVOTIAC SUBQ 02/07/20 11:50 05/04/20 06:59 Insulin Detemir (Levemir) 10 units Q12HR SUBQ 02/07/20 09:00 05/07/20 08:59 02/07/20 08:43 Metoprolol Tartrate (Lopressor) 25 mg Q12HR ORAL 02/03/20 21:00 05/03/20 20:59 02/07/20 08:42 Pantoprazole (Protonix) 40 mg DAILY ORAL 02/07/20 09:00 03/08/20 08:59 02/07/20 08:41 Sodium Chloride 1,000 ml @ 50 mls/hr Q20H IV 02/03/20 17:45 03/04/20 17:44 02/06/20 14:35 Neri Meek MD Feb 07, 2020 12:12
[2020-02-07 16:00] VITALS: BP 167/78
[2020-02-07] MEDS ORDERED: HydrALAZINE 10mg Tab ORAL SCH (16:00)
[2020-02-07 17:27] VITALS: BP 167/78
--- NOTE | 2020-02-11 10:57 | Discharge Summary ---
Discharge Summary Discharge Summary _ DATE OF ADMISSION: 02/01/2020 DATE OF DISCHARGE: 02/07/2020 DISCHARGED BY: Dr. Coffey REASON FOR ADMISSION: 64 years old female with past medical history of hypertension, diabetes mellitus, asthma, presented with complaint of one day of cough and dyspnea on exertion. Patient also reported fever and non bloody diarrhea. She reported generalized weakness and aching. Cough reported as a mildly productive. No hemoptysis. She denied chest pain. No abdominal pain. Rapid COVID-19 in emergency department was positive. Patient had low-grade fever 99.9 . Physical exam revealed wheezing , some hypoxia. Troponin negative , pro BNP 165. EKG revealed sinus rhythm , no acute ischemic changes. Chest x-ray revealed bilateral infiltrates. Sodium 127. BUN 44, creatinine 2.0 No leukocytosis, hemoglobin 10.1 , hematocrit 21.1. Lactic acid 1.2 D-dimer 0.8 , ferritin 228 , LDH 244, CRP 8.0. In emergency department patient received steroid, started on empiric antibiotic , received intravenous hydration and admitted for further management. CONSULTANTS: contact center assistant Dr. Pierce pulmonary Dr. Cain ID specialist Dr. Neri Meek hydrochloric manufacturing supervisor Dr. Hickey [facility]RSE: Patient admitted to isolation room. Patient started on steroids Supplemental oxygen provided and titrated to keep pulse oximetry above 92%. Anticoagulation with a Lovenox provided. Patient required intermittent oxygen via nasal cannula. Supportive care provided. Inflammatory markers trended down: CRP down to less than 0.4. GI prophylaxis provided. Blood pressure regimen was optimized and was managed with multiple antihypertensive , including calcium channel joel hydralazine and beta- joel. Blood sugar was managed with long-acting Levemir, short-acting pre-meal insulin and sliding scale of insulin as needed , as per contact center assistant recommendation. Hemoglobin A1c 10.1 , clearly not at goal. Diabetic diet and diabetic teaching provided. Hypoglycemia protocol was in place. Blood sugar improved. [employer] followed. Patient exhibited dehydration and renal failure, likely acute on chronic with electrolyte imbalances . Electrolytes corrected . Nephrotoxic's were avoided. BUN from 2.0 down to 1.4 . Hyponatremia resolved , prior to discharge sodium 136. Hemoglobin and hematocrit were closely monitored with goal to keep hemoglobin above 7 ; remained at baseline . Prior to discharge hemoglobin 10.6, hematocrit 21.3. Patient clinically stabilized and was ready for discharge home. Patient was counseled to continued self-isolation for total of 10 days. FINAL DIAGNOSES: Covid pneumonia Hyponatremia- resolved Diabetes mellitus [id number] with hyperglycemia Acute on chronic renal failure Dehydration Electrolyte imbalance Hypertension Asthma Anemia DISCHARGE MEDICATIONS: See Medication Reconciliation list. DISCHARGE INSTRUCTIONS: Patient was discharged home with home health services. I have been assigned to dictate discharge summary for this account. I was not involved in the patient's management. Melodie Arellano NP Feb 11, 2020 10:57
== END 2020-02-07 19:03 | disposition home health service (06) | DRG 177 ==
LOC: EMR 17:22 → 4E 19:05 → EDBEDREQ 20:14 → 4E 21:30
DX: U07.1 COVID-19 (principal); J12.89 Other viral pneumonia; K85.90 Acute pancreatitis without necrosis or infection, unspecified; E87.1 Hypo-osmolality and hyponatremia; N17.9 Acute kidney failure, unspecified; I12.9 Hypertensive chronic kidney disease with stage 1 through stage 4 chronic kidney disease, or unspecified chronic kidney disease; E11.22 Type 2 diabetes mellitus with diabetic chronic kidney disease; E11.65 Type 2 diabetes mellitus with hyperglycemia; N18.9 Chronic kidney disease, unspecified; E87.5 Hyperkalemia; D64.9 Anemia, unspecified; J45.909 Unspecified asthma, uncomplicated; K21.9 Gastro-esophageal reflux disease without esophagitis; Z79.84 Long term (current) use of oral hypoglycemic drugs; R09.02 Hypoxemia; D72.810 Lymphocytopenia
CPT/HCPCS: 36415; 71045; 80053; 80061; 81001; 82550; 82607; 82728; 82746; 82962; 82977; 83036; 83540; 83550; 83605; 83615; 83690; 83735; 83880; 84100; 84300; 84443; 84484; 84550; 85007; 85025; 85379; 85610; 85730; 86140; 87040; 93005; 96361; 96365; 96367; 96375; 99285; J1815; J7030; S5561; U0002